=== PATIENT | female | born 1930 | race Caucasian/White ===

== ENCOUNTER 2018-05-20 12:51 | Inpatient (IN) | payer OTHER ==
[2018-05-20 13:06] VITALS: BMI 32.8
--- NOTE | 2018-05-20 14:23 | PDOC ---
History of Present Illness - General History Source: Patient Exam Limitations: No Limitations - History of Present Illness Initial Comments: 05/20/18 15:05 The patient is a 87 year old female, accompanied by family, with a significant PMH of heart failure, hyperlipidemia and hypertension, who presents to the emergency department with 1-2 days of confusion. As per family, the patient appears more confused than baseline and is normally very quick to answer questions. They also report the patient has been complaining of a headache for the past 2 days. The patient denies any suicidal ideations, homicidal ideations or hallucinations. Denies any recent injuries or trauma. The patient denies chest pain, shortness of breath and dizziness. Denies fever, chills, nausea, vomit, diarrhea and constipation. Denies dysuria, frequency, urgency and hematuria. Allergies: NKA PCP: Dr Velazquez <Pablo Yao - Last Filed: 05/20/18 15:04> <Doug Rodriguez - Last Filed: 05/20/18 16:57> - General Chief Complaint: Altered Mental Status Stated Complaint: RAPID HEARTBEAT, HEADACHE (PCP SENT) Time Seen by Provider: 05/20/18 14:23 NIH Stroke Scale - Last Known Well Date/Time & Onset Date Last Known Well: 05/18/18 - Initial Evaluation Level of consciousness: Alert Ask patient the month and their age: Both incorrect Ask patient to open & close eyes; make fist and let go: Obeys both correctly Best gaze (horizontal eye movement): Normal Visual field testing: No visual field loss Facial paresis (Show teeth/raise eyebrows/close eyes tight): Normal symmetrical movement Motor Function: Left Arm: Normal Motor Function: Right Arm: Normal (extends arm 90 (or 45) degrees for 10 seconds without drift Motor Function: Left Leg: Normal (extends leg 30 degrees for 5 seconds without drift) Motor Function: Right Leg: Normal (extends leg 30 degrees for 5 seconds without drift) Limb Ataxia: No ataxia Sensory(Use pinprick test arms,legs,trunk,face/side to side): Normal Best language (Describe picture, name items, read sentences): No Aphasia Dysarthria (read several words): Normal articulation Extinction and Inattention: No abnormality - Total Score NIH Stroke Scale Score: 2 <Doug Rodriguez - Last Filed: 05/20/18 16:57> Past History <Kye Yaoian - Last Filed: 05/20/18 15:04> - Past Medical History Cardiac Disorders: Yes COPD: No CHF: Yes HTN: Yes Hypercholesterolemia: Yes - Surgical History Cardiac Surgery: Yes (cardiac catheterization) - Suicide/Smoking/Psychosocial Hx Smoking History: Former smoker Have you smoked in the past 12 months: No If you are a former smoker, when did you quit?: 30 years ago Information on smoking cessation initiated: No <Doug Rodriguez - Last Filed: 05/20/18 16:57> - Past Medical History Allergies/Adverse Reactions: Allergies Allergy/AdvReac Type Severity Reaction Status Date / Time No Known Allergies Allergy Verified 05/20/18 12:59 Review of Systems - Review of Systems Comments:: 05/20/18 15:05 A complete review of 10 out of 10 review of systems is taken and is negative apart from what is previously mentioned below and in the HPI. <Pablo Yao - Last Filed: 05/20/18 15:04> *Physical Exam - Vital Signs Last Vital Signs Temp Pulse Resp BP Pulse Ox 98.3 F 68 18 142/62 95 05/20/18 13:01 05/20/18 13:01 05/20/18 13:01 05/20/18 13:01 05/20/18 13:01 - Physical Exam Comments: 05/20/18 15:06 Vitals: Triage Vital signs reviewed General Appearance: no acute distress, well nourished well developed, Head: Atraumatic, normocephalic Eyes: Pupils equal reactive round, extraocular movement intact Neck: Supple;No Nuchal rigidity Chest Wall: Nontender Cardiac: Regular rate and rhythm, no murmurs, no rubs, no gallops, Lungs: Clear to auscultation bilateral, good air movement bilaterally, Abdomen: Soft, nondistended, normal bowel sounds, nontender to palpation Rectal: Exam deferred Extremities: Full range of motion to all extremities, no cyanosis, clubbing, or edema Skin: Warm and dry, no rashes or lesions, no petechiae Neuro: (+) AOX1; Cranial Nerves 2-12 grossly intact, Strength intact to all extremities, Sensation intact to all extremities. Normal gait. Psych: normal mood, normal affect <Pablo Yao Last Filed: 05/20/18 15:04> - Vital Signs Last Vital Signs Temp Pulse Resp BP Pulse Ox 98.3 F 68 18 142/62 95 05/20/18 13:01 05/20/18 13:01 05/20/18 13:01 05/20/18 13:01 05/20/18 13:01 <Doug Rodriguez - Last Filed: 05/20/18 16:57> Moderate Sedation - Procedure Monitoring Vital Signs: Procedure Monitoring Vital Signs Temperature 98.3 F 05/20/18 13:01 Pulse Rate 68 05/20/18 13:01 Respiratory Rate 18 05/20/18 13:01 Blood Pressure 142/62 05/20/18 13:01 O2 Sat by Pulse Oximetry (%) 95 05/20/18 13:01 <Pablo Yao - Last Filed: 05/20/18 15:04> - Procedure Monitoring Vital Signs: Procedure Monitoring Vital Signs Temperature 98.3 F 05/20/18 13:01 Pulse Rate 68 05/20/18 13:01 Respiratory Rate 18 05/20/18 13:01 Blood Pressure 142/62 05/20/18 13:01 O2 Sat by Pulse Oximetry (%) 95 05/20/18 13:01 <Doug Rodriguez - Last Filed: 05/20/18 16:57> Heart Score/ECG Review - ECG Impressions Comment:: 05/20/18 16:57 EKG performed at 1631 demonstrates normal sinus rhythm nonspecific biphasic T waves. Inferior laterally with no acute ST elevations Interpreted by me. <Doug Rodriguez - Last Filed: 05/20/18 16:57> ED Treatment Course - LABORATORY CBC & Chemistry Diagram: 05/20/18 15:30 05/20/18 15:30 <Doug Rodriguez - Last Filed: 05/20/18 16:57> Medical Decision Making - Medical Decision Making 05/20/18 16:17 87 years old with past medical history significant for CHF hypertension high cholesterol with 2 day history of altered mental status and confusion Head CT with no acute findings also with headache 2 days We'll admit to medicine for further management neurology has been consult did patient ordered for Reglan and Benadryl given the possibility of acute confusional migraine or although other neurologic etiologies we'll also need to be ruled out <Doug Rodriguez - Last Filed: 05/20/18 16:57> *DC/Admit/Observation/Transfer - Attestations Scribe Attestion: 05/20/18 15:11 Documentation prepared by Pablo Yao, acting as medical records analyst for Doug Rodriguez MD. <Pablo Yao - Last Filed: 05/20/18 15:04> - Discharge Dispostion Decision to Admit order: Yes <Doug Rodriguez - Last Filed: 05/20/18 16:57> Diagnosis at time of Disposition: Altered mental status Qualifiers: Altered mental status type: unspecified Qualified Code(s): R41.82 - Altered mental status, unspecified - Referrals Referrals: Kenn Velazquez MD [Primary Care Provider] -
[2018-05-20 15:53] LABS: BASO % 0.7 % (0-2.0); EOS % 1.4 % (0-4.5); HEMATOCRIT 41.8 % (32.4-45.2); HEMOGLOBIN 13.3 GM/dL (10.7-15.3); LYMPH % 17.1 % (8-40); MCH 29.7 pg (25.7-33.7); MCHC 31.9 g/dl (32.0-36.0); MEAN CELL VOLUME 93.2 fl (80-96); MEAN PLT VOLUME 10.8 fl (7.5-11.1); MONO % 9.5 % (3.8-10.2); NEUT % 71.3 % (42.8-82.8); PLATELET COUNT 213 K/MM3 (134-434); RBC 4.49 M/mm3 (3.60-5.2); RDW 14.8 % (11.6-15.6); WHITE BLOOD COUNT 11.4 K/mm3 (4.0-10.0)
[2018-05-20] MEDS ORDERED: SODIUM CHLORIDE 0.9% 1000 ML INFUS.BAG IV ONE (16:15)
[2018-05-20] MEDS ORDERED: METOCLOPRAMIDE HCL INJECTION 10 MG/2 ML VIAL IVPB ONE (16:15)
[2018-05-20] MEDS ORDERED: METOCLOPRAMIDE HCL INJECTION 10 MG/2 ML VIAL ONE (16:18)
[2018-05-20 16:19] LABS: ALBUMIN 3.8 g/dl (3.4-5.0); ALK PHOS 76 U/L (45-117); ANION GAP 6 MMOL/L (8-16); BILIRUBIN,TOTAL 0.6 mg/dL (0.2-1); BLOOD UREA NITROGEN 14 mg/dL (7-18); CALCIUM 9.1 mg/dL (8.5-10.1); CHLORIDE 105 mmol/L (98-107); CO2 27 mmol/L (21-32); CREATININE 1.4 mg/dL (0.55-1.3); GLUCOSE,RANDOM 91 mg/dL (74-106); N-TERMINAL BNP 413.9 pg/ml (5-450); POTASSIUM 4.1 mmol/L (3.5-5.1); SGOT/AST 15 U/L (15-37); SGPT/ALT 14 U/L (13-61); SODIUM 138 mmol/L (136-145); TOT PROT 8.3 g/dl (6.4-8.2)
[2018-05-20] MEDS ORDERED: ACETAMINOPHEN 325 MG TABLET (FP) PO PRN (17:00)
--- NOTE | 2018-05-20 17:15 | HP ---
Admitting History and Physical - Primary Care Physician PCP: Kenn Velazquez - Admission Chief Complaint: Headache and confusion History of Present Illness: Ms Minor is a pleasant 87 year old female who was sent in from her PCP's office secondary to confusion. She herself says she feels fine and is without new complaint. She denies fevers, chills, lightheadedness, dizziness, passing out, headache, chest pain or pressure, shortness of breath, nausea, vomiting, diarrhea, constipation, difficulty or pain on urination, or swelling. She does endorse chronic dyspnea on exertion that is unchanged and a productive cough that has been present for about a year. However her family says that 2 days ago she began to complain of a headache, and yesterday she became confused. They state she can answer questions appropriately but it takes her longer to answer. Also that she answers some simple questions (like the date) inappropriately which is unusual. The daughter states that the way she answers questions is like she is "living in the past". History Source: Patient, Family Member Limitations to Obtaining History: Clinical Condition - Past Medical History Cardiovascular: Yes: CHF, HTN, Hyperlipdemia - Past Surgical History Past Surgical History: Yes: None - Smoking History Smoking history: Former smoker Have you smoked in the past 12 months: No If you are a former smoker, when did you quit?: 30 years ago - Alcohol/Substance Use Hx Alcohol Use: Yes (occasional) History of Substance Use: reports: None - Social History ADL: Independent History of Recent Travel: No Home Medications - Allergies Allergies/Adverse Reactions: Allergies Allergy/AdvReac Type Severity Reaction Status Date / Time No Known Allergies Allergy Verified 05/20/18 12:59 - Home Medications Home Medications (free text): nifedipine 30mg daily. carvedilol. atorvastatin Family Disease History - Family Disease History Family Disease History: Other: Mother (acute CVA) Review of Systems Findings/Remarks: Full review of systems obtained, as per HPI and otherwise negative Physical Examination Vital Signs: Vital Signs Temperature 36.8 C 05/20/18 13:01 Pulse Rate 68 05/20/18 13:01 Respiratory Rate 18 05/20/18 13:01 Blood Pressure 142/62 05/20/18 13:01 O2 Sat by Pulse Oximetry (%) 95 05/20/18 13:01 Constitutional: Yes: Well Nourished, No Distress, Calm Eyes: Yes: Conjunctiva Clear, EOM Intact, PERRL HENT: Yes: Atraumatic, Normocephalic Cardiovascular: Yes: Regular Rate and Rhythm. No: Gallop, Murmur, Rub Respiratory: Yes: Regular, CTA Bilaterally. No: Rales, Rhonchi, Wheezes Gastrointestinal: Yes: Normal Bowel Sounds, Soft. No: Distention, Tenderness Extremities: Yes: WNL Edema: No Neurological: Yes: Alert, Oriented (to person only, answered place and date wrong) ...Motor Strength: WNL Labs: CBC, BMP 05/20/18 15:30 05/20/18 15:30 Imaging - Results Chest X-ray: Pending Cat Scan: Report Reviewed Problem List - Problems (1) Altered mental status Assessment/Plan: -currently unclear -was having headache, currently resolved, but may be atypical migraine -however need to rule out other sources -neurology consulted -will check MRI head for possible CVA -echo and carotid ultrasound -check urinalysis, urine culture, influenza, chest x-ray, and blood cultures for possible infectious cause -check ammonia and TSH for metabolic cause -speech and PT consult Code(s): R41.82 - ALTERED MENTAL STATUS, UNSPECIFIED Qualifiers: Altered mental status type: unspecified Qualified Code(s): R41.82 - Altered mental status, unspecified (2) HTN (hypertension) Assessment/Plan: -slightly elevated but should not cause AMS -continue nifedipine -will place on low dose coreg as family does not know exact dose -obtain home dose Code(s): I10 - ESSENTIAL (PRIMARY) HYPERTENSION (3) HLD (hyperlipidemia) Assessment/Plan: -check lipid panel in am -continue atorvastatin, will place on 20mg -obtain home dose Code(s): E78.5 - HYPERLIPIDEMIA, UNSPECIFIED (4) CHF (congestive heart failure) Assessment/Plan: -obtain ECHO -currently not on diuretics -no ACEI secondary to causes cough Code(s): I50.9 - HEART FAILURE, UNSPECIFIED (5) Proteinuria Assessment/Plan: -noted Code(s): R80.9 - PROTEINURIA, UNSPECIFIED (6) Frequent UTI Assessment/Plan: -check urinalysis and urine culture Code(s): N39.0 - URINARY TRACT INFECTION, SITE NOT SPECIFIED
--- NOTE | 2018-05-20 17:21 | CON.NEURO ---
Consult Consult Specialty:: Ulysses Referred by:: ER Reason for Consultation:: AMS - History of Present Illness History of Present Illness: 87 years old woman with history of CAD Senile mild cog impairment hypertension Mild obesity Apparently patient was with her family and she lives with her who I interviewed on telemetry patient had a sudden onset of being confused and not knowing dates and time. This is not normal this never happened before no recent travel no head trauma patient was stepwise in the emergency room CAT scan of the head was done blood work was taken. Patient with mildly elevated white count CAT scan of the head was within normal I ordered an MRI. I reviewed images of the MRI which did not show any evidence of stroke. The abnormal signal intensity that the radiologist referred to is noted. when interviewed the patient on the floor the was at her presence at the bedside she was pleasant lady with no complain still doesn't know the date she said its [place] date coming up. No agitation no change in behavior no seizure activity. Registered nurse and telemetry did not detect any cardiac arrhythmia. - History Source History Provided By: Medical Record Limitations to Obtaining History: Clinical Condition - Smoking History Smoking history: Former smoker Have you smoked in the past 12 months: No If you are a former smoker, when did you quit?: 30 years ago Home Medications - Allergies Allergies/Adverse Reactions: Allergies Allergy/AdvReac Type Severity Reaction Status Date / Time No Known Allergies Allergy Verified 05/20/18 12:59 Family Disease History - Family Disease History Family History: Denies (seizure) Review of Systems - Review of Systems Neurological: reports: Incoordination, Numbness Physical Exam-Neuro Vital Signs: Vital Signs Temperature 98.3 F 05/20/18 13:01 Pulse Rate 68 05/20/18 13:01 Respiratory Rate 18 05/20/18 13:01 Blood Pressure 142/62 05/20/18 13:01 O2 Sat by Pulse Oximetry (%) 95 05/20/18 13:01 Constitutional: Yes: Well Nourished Neck: Yes: WNL Cardiovascular: Yes: WNL Labs: CBC, BMP 05/20/18 15:30 05/20/18 15:30 - Neuro Exam Level Of Consciousness: Yes: Oriented to Person, Oriented to Place Eyes: Yes: PERRLA Speech: WNL Dominant Hand: Right Cranial Nerves II-XII Intact: Yes Gag: Present DTR's: 1+ Left Bicep, 1+ Right Bicep, 1+ Left Brachioradialis, 1+ Right Brachioradialis Response to light touch: Normal Response to pain prick: Normal Response to temperature: Normal Response to vibration: Normal Motor Strength: 3/5: Left Arm, Right Arm, Left Leg, Right Leg Gait: Deferred Imaging - Results Cat Scan: Image Reviewed MRI: Image Reviewed Problem List - Problems (1) Altered mental status Assessment/Plan: altered mental status with sudden sharp onset we encounter this not infrequently with patients coming with a sudden onset of altered sensorium associated with immediate and short-term memory dysfunction as a beginning of early stages of more organic brain syndrome in the category of Alzheimer dementia. I really do not think this patient's MRI is abnormal control it looks very good for an 87 years old woman.. I will treat her as sudden onset of dementia I would also rule out sepsis. Plan 1. Agree to presented with the monitor. 2. Blood work for dementia. 3. Sepsis workup. 4. EEG. 5. Trial of Namenda 5 mg twice a day with careful monitoring of side effects of sedation and dizziness. Thank you very much for allowing me to be part of this patient's neurological care will follow the patient during the admission. Code(s): R41.82 - ALTERED MENTAL STATUS, UNSPECIFIED Qualifiers: Altered mental status type: unspecified Qualified Code(s): R41.82 - Altered mental status, unspecified
[2018-05-20] MEDS ORDERED: ATORVASTATIN CA 20 MG TABLET (FP) PO SCH (22:00)
[2018-05-20] MEDS: CARVEDILOL 3.125 MG TABLET (FP) PO SCH (22:34)
[2018-05-21 02:55] LABS: URINE APPEARANCE CLEAR; URINE BILIRUBIN NEGATIVE (<2.0 mg/dL); URINE COLOR LTYELLOW; URINE GLUCOSE (UA) NEGATIVE (NEGATIVE); URINE KETONE NEGATIVE (NEGATIVE); URINE LEUK ESTERASE NEGATIVE (NEGATIVE); URINE NITRITE NEGATIVE (NEGATIVE); URINE PROTEIN NEGATIVE (NEGATIVE); URINE UROBILINOGEN NEGATIVE mg/dL (0.2-1.0)
[2018-05-21 06:49] LABS: BASO % 0.5 % (0-2.0); EOS % 1.5 % (0-4.5); HEMATOCRIT 38.2 % (32.4-45.2); HEMOGLOBIN 12.2 GM/dL (10.7-15.3); LYMPH % 18.4 % (8-40); MCH 29.9 pg (25.7-33.7); MEAN CELL VOLUME 93.2 fl (80-96); MEAN PLT VOLUME 11.4 fl (7.5-11.1); MONO % 10.5 % (3.8-10.2); NEUT % 69.1 % (42.8-82.8); PLATELET COUNT 185 K/MM3 (134-434); RDW 14.9 % (11.6-15.6); WHITE BLOOD COUNT 11.2 K/mm3 (4.0-10.0)
[2018-05-21 07:22] LABS: INR 1.13 (0.83-1.09); PROTHROMBIN TIME (PATIENT) 13.4 SEC (9.7-13.0)
[2018-05-21 08:07] LABS: ALBUMIN 3.2 g/dl (3.4-5.0); ALK PHOS 67 U/L (45-117); ANION GAP 9 MMOL/L (8-16); BLOOD UREA NITROGEN 12 mg/dL (7-18); CALCIUM 8.3 mg/dL (8.5-10.1); CHLORIDE 105 mmol/L (98-107); CHOLESTEROL 217 mg/dL (50-200); CO2 26 mmol/L (21-32); CREATININE 1.3 mg/dL (0.55-1.3); GLUCOSE,RANDOM 84 mg/dL (74-106); HDL CHOLESTEROL 49 mg/dL (40-60); MAGNESIUM 2.1 mg/dL (1.8-2.4); PHOSPHOROUS 3.2 mg/dL (2.5-4.9); POTASSIUM 3.7 mmol/L (3.5-5.1); SGOT/AST 15 U/L (15-37); SGPT/ALT 15 U/L (13-61); SODIUM 140 mmol/L (136-145); TOT PROT 7.3 g/dl (6.4-8.2); TRIGLYCERIDES 122 mg/dL (0-150)
[2018-05-21] MEDS ORDERED: ATORVASTATIN CA 80 MG TABLET (FP) PO SCH (08:56)
--- NOTE | 2018-05-21 09:45 | EKG ---
Test Reason : Blood Pressure : / mmHG Vent. Rate : 084 BPM Atrial Rate : 084 BPM P-R Int : 156 ms QRS Dur : 102 ms QT Int : 414 ms P-R-T Axes : 025 -25 -01 degrees QTc Int : 489 ms NORMAL SINUS RHYTHM POSSIBLE LEFT ATRIAL ENLARGEMENT LEFT VENTRICULAR HYPERTROPHY NONSPECIFIC T WAVE ABNORMALITY PROLONGED QT ABNORMAL ECG NO PREVIOUS ECGS AVAILABLE Confirmed by MAY MCNULTY, CINDY ([id number]) on 05/21/2018 9:45:14 AM Referred By: Confirmed By:CINDY OLVERA MD
--- NOTE | 2018-05-21 09:51 | CONSULT ---
Admitting History and Physical - Primary Care Physician PCP: Jabier Nunez - Admission History of Present Illness: 87 years old with past medical history significant for CHF hypertension high cholesterol with 2 day history of altered mental status and confusion Selected Entries 05/20/18 05/20/18 05/20/18 13:01 19:10 22:30 Temperature 98.3 F 98.3 F 98.5 F 05/21/18 05/21/18 01:55 05:00 Temperature 98.3 F 99.1 F Laboratory Tests 05/20/18 05/21/18 15:30 05:30 WBC 11.4 H 11.2 H Pt's reports his was fully oriented until a couple of days ago. She was driving, cooking, independent in ADL. History Source: Family Member, Medical Record Limitations to Obtaining History: Clinical Condition (Unaware that she is in hospital, right after having echo done at bedside. PT saw her 15 min later and said she was oriented for them) - Past Medical History Cardiovascular: Yes: CHF, HTN, Hyperlipdemia ...: No - Past Surgical History Past Surgical History: Yes: None - Smoking History Smoking history: Former smoker Have you smoked in the past 12 months: No If you are a former smoker, when did you quit?: 30 years ago - Alcohol/Substance Use Hx Alcohol Use: Yes (occasional) History of Substance Use: reports: None - Social History ADL: Independent History of Recent Travel: No History - Admission Reason For Visit: ALTERED MENTAL STATUS - Diagnostics CT Scan: Report Reviewed MRI: Report Reviewed (indicative of chronic hypertensive encephalopathy) - General Mental Status: Awake and Alert, Able to Follow Commands, Forgetful, Intermittently Confused Attention: Intact Ability to Follow Directions: Good Head/Neck Control: WFL - Hearing Hearing: Normal Hearing Aide: No With Patient: No Speech Evaluation - Communication Primary Language: LIBERIAN Communication: Yes: Within Normal Limits Oral Expression Ability: Yes: No Impairment - Speech Production Able to Make Needs Known: Yes: WNL Intelligibility: Yes: WNL - Speech Characteristics Voice Loudness: Normal Voice Pitch: Yes: Normal Voice Phonatory-based Quality: Yes: Normal Speech Pattern: Normal Speech Clarity: < 100% Nasal Resonance: Normal Articulation: Yes: Precise - Language/Auditory Comprehension Follows: Yes: 2 Stage Simple Commands - Language/Verbal Expression Able to Respond to Simple Queries: Yes: WNL Able to Communicate Wants and Needs: Yes: WNL Functional Communication Status: Yes: WNL - Swallow Evaluation/Bedside Assessment Current Nutritional Intake: Regular, Thin Liquids Oral Secretions: Yes: WFL Dentition: Yes: Adequate Facial Symmetry at Rest: Symmetrical Facial Symmetry on Retraction: Symmetrical Against Resistance Opening: Normal Against Resistance Closing: Normal Pucker Lips: Normal Smile: Normal Lingual Movement: Symmetric Lingual Speed of Movement: Normal Lingual Movement Strgth Against Opposition: Normal Lingual Movement Characteristics: Normal Velopharyngeal Movement: Normal Laryngeal Elevation: WFL Laryngeal Movement: Able to Palpate Rate of Intake: WFL Bolus Size: WFL Labial Seal: WFL Chewing: WFL Oral Prep Time: WFL A-P Transit: WFL Pocketing: None Timing of Swallow: WFL Coughing/Throat Clear: No Change in Voice: No Recommendations - Speech Evaluation, Impression/Plan Impression: Speech/language/swallowing intact. Orientation fluctuating? - Dysphagia Impressions/Plan Swallowing Skills: WF Dysphagia Impressions: No Impairment *Silent aspiration: cannot be R/O at bedside - Recommendations Diet Consistency: Regular Medication Administration: Whole with water Liquids: Thin Liquids
[2018-05-21] MEDS ORDERED: NIFEdipine E.R. 30 MG TABLET (FP) PO SCH (10:00)
[2018-05-21] MEDS: CARVEDILOL 3.125 MG TABLET (FP) PO SCH (10:29)
[2018-05-21] MEDS: ENOXAPARIN NA (PORCINE) 40 MG/0.4 ML DISP.SYRIN SQ SCH (10:29)
[2018-05-21] MEDS: ASPIRIN COATED 81 MG TABLET.EC PO SCH (10:29)
--- NOTE | 2018-05-21 10:57 | ECHO ---
Name: DEVAN VILLALBA Exam:Adult Echocardiogram Study Date: 05/21/2018 09:33 AM Age: 87 yrs Reason For Study: cva Height: 63 in Weight: 185 lb BSA: 1.9 m2 MMode/2D Measurements & Calculations IVSd: 1.0 cm Ao root diam: 2.8 cm LVIDd: 4.0 cm ACS: 1.9 cm LVIDs: 3.5 cm LVPWd: 1.6 cm EDV(Teich): 68.7 ml LVOT diam: 2.5 cm ESV(Teich): 50.5 ml Doppler Measurements & Calculations Med Peak E' Earnest: 6.6 cm/sec Lat Peak E' Earnest: 2.6 cm/sec Procedure The study was technically difficult with many images being suboptimal in quality. Left Ventricle There is mild concentric left ventricular hypertrophy. Left ventricular systolic function is moderate ly reduced. The transmitral spectral Doppler flow pattern is suggestive of impaired LV relaxation. There is moderate global hypokinesis of the left ventricle. Right Ventricle The right ventricle is grossly normal size. The right ventricular systolic function is grossly normal . Atria The left atrium is mildly dilated. Mitral Valve The mitral valve is grossly normal. There is no mitral valve stenosis. There is mild mitral regurgita tion. Tricuspid Valve The tricuspid valve is normal in structure and function. There is Trace to mild tricuspid regurgitati on. Aortic Valve The aortic valve is not well visualized. Mild to moderate aortic regurgitation. Pulmonic Valve The pulmonic valve is not well seen, but is grossly normal. There is no pulmonic valvular stenosis. Great Vessels The aortic root is normal size. Pericardium/Pleura There is no pericardial effusion. Interpretation Summary The study was technically difficult with many images being suboptimal in quality. There is moderate global hypokinesis of the left ventricle. Left ventricular systolic function is moderately reduced. There is mild concentric left ventricular hypertrophy. The transmitral spectral Doppler flow pattern is suggestive of impaired LV relaxation. The left atrium is mildly dilated. There is mild mitral regurgitation. There is Trace to mild tricuspid regurgitation. The aortic valve is not well visualized. Mild to moderate aortic regurgitation. There is no pericardial effusion. MD Mainor Coyle 05/21/2018 10:56 AM
[2018-05-21] MEDS ORDERED: CARVEDILOL 6.25 MG TABLET (FP) PO SCH ×2 (11:34→22:00)
--- NOTE | 2018-05-21 12:59 | PN ---
Physical Exam: SUBJECTIVE: Patient seen and examined at bed side this morning. states she has no complaints. Denies chest pain, sob, cough, palpitation, abdominal pain, nausea or vomiting. As per patient's grand daughter (spoke over the phone who states she is confused , not at her baseline). OBJECTIVE: Vital Signs Period Temp Pulse Resp BP Sys/Rendon Pulse Ox Last 24 Hr 98.3 F-99.1 F 68-85 18-20 129-167/56-88 94-95 GENERAL: Elderly female, sitting in a chair comfortably, patient is awake, alert , and confused, in no acute distress. HEAD: Normal with no signs of trauma. EYES: EOM intact, no pallor or icterus. ENT: Ears normal, moist mucous membranes. NECK: Supple. LUNGS: B/L Breath sounds equal, no wheeze or crackles. HEART: Regular rate and rhythm, S1, S2 with systolic murmur. ABDOMEN: Soft, nontender, no organomegaly. EXTREMITIES: 2+ pulses, warm, well-perfused, no edema. NEUROLOGICAL: No facial droop, follows commands, power 5/5 in all extremities, sensations intact, Cranial nerves II through XII grossly intact. Normal speech, normal gait. PSYCH: Normal mood, normal affect. SKIN: Warm, dry, normal turgor, no rashes or lesions noted Laboratory Results - last 24 hr 05/20/18 05/20/18 05/20/18 15:30 15:30 15:30 WBC 11.4 H RBC 4.49 Hgb 13.3 Hct 41.8 MCV 93.2 MCH 29.7 MCHC 31.9 L RDW 14.8 Plt Count 213 MPV 10.8 Absolute Neuts (auto) 8.2 H Neutrophils % 71.3 Lymphocytes % 17.1 Monocytes % 9.5 Eosinophils % 1.4 Basophils % 0.7 Nucleated RBC % 0 ESR PT with INR INR Sodium 138 Potassium 4.1 Chloride 105 Carbon Dioxide 27 Anion Gap 6 L BUN 14 Creatinine 1.4 H Creat Clearance w eGFR 35.74 Random Glucose 91 Hemoglobin A1c % Calcium 9.1 Phosphorus Magnesium Total Bilirubin 0.6 AST 15 ALT 14 Alkaline Phosphatase 76 Ammonia Troponin I 0.04 C-Reactive Protein 0.7 H B-Natriuretic Peptide 413.9 Cancelled Total Protein 8.3 H Albumin 3.8 Triglycerides Cholesterol Total LDL Cholesterol HDL Cholesterol Vitamin B12 244 TSH Free T4 Urine Color Urine Appearance Urine pH Ur Specific [place] Urine Protein Urine Glucose (UA) Urine Ketones Urine Blood Urine Nitrite Urine Bilirubin Urine Urobilinogen Ur Leukocyte Esterase RPR Titer Influenza A (Rapid) Influenza B (Rapid) 05/20/18 05/20/18 05/20/18 19:19 19:19 22:30 WBC RBC Hgb Hct MCV MCH MCHC RDW Plt Count MPV Absolute Neuts (auto) Neutrophils % Lymphocytes % Monocytes % Eosinophils % Basophils % Nucleated RBC % ESR PT with INR INR Sodium Potassium Chloride Carbon Dioxide Anion Gap BUN Creatinine Creat Clearance w eGFR Random Glucose Hemoglobin A1c % Calcium Phosphorus Magnesium Total Bilirubin AST ALT Alkaline Phosphatase Ammonia 29.30 Troponin I C-Reactive Protein B-Natriuretic Peptide Total Protein Albumin Triglycerides Cholesterol Total LDL Cholesterol HDL Cholesterol Vitamin B12 TSH 4.63 H Free T4 0.74 L Urine Color Urine Appearance Urine pH Ur Specific [place] Urine Protein Urine Glucose (UA) Urine Ketones Urine Blood Urine Nitrite Urine Bilirubin Urine Urobilinogen Ur Leukocyte Esterase RPR Titer Influenza A (Rapid) Negative Influenza B (Rapid) Negative 05/21/18 05/21/18 05/21/18 02:00 05:30 05:30 WBC 11.2 H RBC 4.10 Hgb 12.2 Hct 38.2 MCV 93.2 MCH 29.9 MCHC 32.0 RDW 14.9 Plt Count 185 MPV 11.4 H Absolute Neuts (auto) 7.7 Neutrophils % 69.1 Lymphocytes % 18.4 Monocytes % 10.5 H Eosinophils % 1.5 Basophils % 0.5 Nucleated RBC % 0 ESR PT with INR 13.40 H INR 1.13 H Sodium Potassium Chloride Carbon Dioxide Anion Gap BUN Creatinine Creat Clearance w eGFR Random Glucose Hemoglobin A1c % Calcium Phosphorus Magnesium Total Bilirubin AST ALT Alkaline Phosphatase Ammonia Troponin I C-Reactive Protein B-Natriuretic Peptide Total Protein Albumin Triglycerides Cholesterol Total LDL Cholesterol HDL Cholesterol Vitamin B12 TSH Free T4 Urine Color Ltyellow Urine Appearance Clear Urine pH 7.0 Ur Specific [place] 1.008 L Urine Protein Negative Urine Glucose (UA) Negative Urine Ketones Negative Urine Blood Negative Urine Nitrite Negative Urine Bilirubin Negative Urine Urobilinogen Negative Ur Leukocyte Esterase Negative RPR Titer Influenza A (Rapid) Influenza B (Rapid) 05/21/18 05/21/18 05/21/18 05:30 05:30 05:30 WBC RBC Hgb Hct MCV MCH MCHC RDW Plt Count MPV Absolute Neuts (auto) Neutrophils % Lymphocytes % Monocytes % Eosinophils % Basophils % Nucleated RBC % ESR 19 PT with INR INR Sodium 140 Potassium 3.7 Chloride 105 Carbon Dioxide 26 Anion Gap 9 BUN 12 Creatinine 1.3 Creat Clearance w eGFR 38.93 Random Glucose 84 Hemoglobin A1c % Calcium 8.3 L Phosphorus 3.2 Magnesium 2.1 Total Bilirubin 1.0 AST 15 ALT 15 Alkaline Phosphatase 67 Ammonia Troponin I C-Reactive Protein B-Natriuretic Peptide Total Protein 7.3 Albumin 3.2 L Triglycerides 122 Cholesterol 217 H Total LDL Cholesterol 145 H HDL Cholesterol 49 Vitamin B12 TSH 5.61 H Free T4 Urine Color Urine Appearance Urine pH Ur Specific [place] Urine Protein Urine Glucose (UA) Urine Ketones Urine Blood Urine Nitrite Urine Bilirubin Urine Urobilinogen Ur Leukocyte Esterase RPR Titer Nonreactive Influenza A (Rapid) Influenza B (Rapid) 05/21/18 05:30 WBC RBC Hgb Hct MCV MCH MCHC RDW Plt Count MPV Absolute Neuts (auto) Neutrophils % Lymphocytes % Monocytes % Eosinophils % Basophils % Nucleated RBC % ESR PT with INR INR Sodium Potassium Chloride Carbon Dioxide Anion Gap BUN Creatinine Creat Clearance w eGFR Random Glucose Hemoglobin A1c % 5.8 Calcium Phosphorus Magnesium Total Bilirubin AST ALT Alkaline Phosphatase Ammonia Troponin I C-Reactive Protein B-Natriuretic Peptide Total Protein Albumin Triglycerides Cholesterol Total LDL Cholesterol HDL Cholesterol Vitamin B12 TSH Free T4 Urine Color Urine Appearance Urine pH Ur Specific [place] Urine Protein Urine Glucose (UA) Urine Ketones Urine Blood Urine Nitrite Urine Bilirubin Urine Urobilinogen Ur Leukocyte Esterase RPR Titer Influenza A (Rapid) Influenza B (Rapid) Active Medications Generic Name Dose Route Start Last Admin Trade Name Freq PRN Reason Stop Dose Admin Acetaminophen 650 mg 05/20/18 17:00 Tylenol - PO Q4H PRN FEVER Aspirin 81 mg 05/21/18 10:00 05/21/18 10:29 Ecotrin - PO 81 mg DAILY MARY Administration Atorvastatin Calcium 80 mg 05/21/18 08:56 Lipitor - PO HS MARY Carvedilol 6.25 mg 05/21/18 22:00 Coreg - PO BID MARY Enoxaparin Sodium 40 mg 05/21/18 10:00 05/21/18 10:29 Lovenox - SQ 40 mg DAILY MARY Administration Nifedipine 30 mg 05/21/18 10:00 05/21/18 10:29 Procardia Xl - PO 30 mg DAILY MARY Administration ASSESSMENT/PLAN: Patient is an 87 year old female with significant PMHx of heart failure, hyperlipidemia and hypertension presented to the ED with the chief complaint of confusion x 1-2 days. 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 Admit to tele/continuous cardiac monitoring AMS less likely due to sepsis, no SIRS, no source of infection, flu ruled out. Blood cultures/Urine cultures negative. Trial of [place] CT Head: No acute pathology Brain MRI reviewed and discussed with Dr. Arora, patient doesn't have an acute stroke Carotid doppler pending Echo reviewed, no past echo to compare with. Will try to call her PCP's office to get more info. Swallow eval done, no swallowing issues. Pending PT eval. # Newly diagnosed hypothyroidism TSH high, T4 low. Will start her on PO Synthroid 25 mcg Will order Thyroid ultrasound if needed. Needs outpatient f/up with [facility]. # HLD Continue Statin 20mg # HTN Continue Losartin 100 mg PO daily, Nifedipine 60 mg daily # DM ISS, finger sticks, watch for hypoglycemic episodes, hold Metformin # Hypothyroidism # FEN Not on IV fluids. Electrolytes WNL Cholesterol/fat controlled diet # Prophylaxis For DVT: On Lovenox 40 mg sq For GI: Not indicated # Code Status: Full Code # Dispo:Admitted in Tele. Duration of stay likely 1-2 days. Illness, Investigation and plan of care explained to the patient's family. They verbalized understanding. Case discussed with Dr. Nunez. Visit type - Emergency Visit Emergency Visit: Yes ED Registration Date: 05/20/18 Care time: The patient presented to the Emergency Department on the above date and was hospitalized for further evaluation of their emergent condition. - New Patient This patient is new to me today: Yes Date on this admission: 05/21/18 - Critical Care Critical Care patient: No - Discharge Referral Referred to [facility] Med P.C.: No
--- NOTE | 2018-05-21 13:44 | PN ---
Teaching Attending Note Name of Resident: Cinthya Wahl ATTENDING PHYSICIAN STATEMENT I saw and evaluated the patient. I reviewed the resident's note and discussed the case with the resident. I agree with the resident's findings and plan as documented. SUBJECTIVE: Ms Minor says she feels fine today. Denies cp, sob, n/v. AxO x2 today, closer with the date but still did not say 2018 OBJECTIVE: Last Vital Signs Temp Pulse Resp BP Pulse Ox 36.8 C 84 20 136/86 95 05/21/18 14:55 05/21/18 14:55 05/21/18 14:55 05/21/18 14:55 05/21/18 09:00 Gen: nad Pulm: ctab w/o w/r/r CV: rrr w/o m/r/g Abd: +bs, s/nt/nd Ext: no c/c/e CBC, BMP 05/21/18 05:30 05/21/18 05:30 MRI Abnormal restrictive diffusion involving septum pellucidum, column of fornix, genu of corpus callosum - recent nonhemorrhagic ischemic changes in vascular territory of the A1, A2 branches of the anterior cerebral artery. Extensive diffuse multiple discrete and confluent FLAIR hyperintensities scattered throughout the supratentorial white matter consistent with chronic hypertensive encephalopathy. Foci of increased signal intensity observed in the garcia, middle cerebellar peduncles - chronic microangiopathic ischemic changes, gliosis. ASSESSMENT AND PLAN: (1) Altered mental status Assessment/Plan: -MRI read reviewed -awaiting official note from neurology -MRI read above, but per discussion with neurology no acute CVA noted -possible early alzheimers -await culture results to rule out sepsis Code(s): R41.82 - ALTERED MENTAL STATUS, UNSPECIFIED Qualifiers: Altered mental status type: unspecified Qualified Code(s): R41.82 - Altered mental status, unspecified (2) HTN (hypertension) Assessment/Plan: -continue nifedipine -placed on coreg 12.5mg bid which is home dose -may need to adjust for better control Code(s): I10 - ESSENTIAL (PRIMARY) HYPERTENSION (3) HLD (hyperlipidemia) Assessment/Plan: -continue lipitor Code(s): E78.5 - HYPERLIPIDEMIA, UNSPECIFIED (4) CHF (congestive heart failure) Assessment/Plan: -ECHO reviewed -will d/w cardiology if this is a change Code(s): I50.9 - HEART FAILURE, UNSPECIFIED (5) Proteinuria Assessment/Plan: -noted Code(s): R80.9 - PROTEINURIA, UNSPECIFIED (6) Frequent UTI Assessment/Plan: -urinalysis negative Code(s): N39.0 - URINARY TRACT INFECTION, SITE NOT SPECIFIED (7) Hypothyroidism -elevated TSH and low FT4 -will start synthroid 25mcg daily -follow up as an outpatient Problem List - Problems (1) Altered mental status Code(s): R41.82 - ALTERED MENTAL STATUS, UNSPECIFIED Qualifiers: Altered mental status type: unspecified Qualified Code(s): R41.82 - Altered mental status, unspecified (2) HTN (hypertension) Code(s): I10 - ESSENTIAL (PRIMARY) HYPERTENSION (3) HLD (hyperlipidemia) Code(s): E78.5 - HYPERLIPIDEMIA, UNSPECIFIED (4) CHF (congestive heart failure) Code(s): I50.9 - HEART FAILURE, UNSPECIFIED (5) Proteinuria Code(s): R80.9 - PROTEINURIA, UNSPECIFIED (6) Frequent UTI Code(s): N39.0 - URINARY TRACT INFECTION, SITE NOT SPECIFIED
[2018-05-21] MEDS ORDERED: LEVOTHYROXINE NA 25 MCG TABLET (FP) PO ONE (13:45)
[2018-05-21] MEDS: INSULIN SLIDING SCALE (NOVOLOG) 1 VIAL SQ SCH ×2 (16:46→21:34)
[2018-05-21] MEDS ORDERED: MELATONIN 5 MG TABLETS PO ONE (20:58)
[2018-05-21] MEDS: CARVEDILOL 12.5 MG TABLET (FP) PO SCH (21:34)
[2018-05-21] MEDS ORDERED: ATORVASTATIN CA 20 MG TABLET (FP) PO SCH (22:00)
[2018-05-22] MEDS: INSULIN SLIDING SCALE (NOVOLOG) 1 VIAL SQ SCH ×2 (06:19→13:04)
[2018-05-22] MEDS ORDERED: LEVOTHYROXINE NA 25 MCG TABLET (FP) PO SCH (07:00)
[2018-05-22 08:02] LABS: HEMATOCRIT 33.9 % (32.4-45.2); HEMOGLOBIN 11.9 GM/dL (10.7-15.3); MCH 32.3 pg (25.7-33.7); MCHC 35.2 g/dl (32.0-36.0); MEAN CELL VOLUME 91.6 fl (80-96); MEAN PLT VOLUME 11.6 fl (7.5-11.1); PLATELET COUNT 184 K/MM3 (134-434); RDW 14.4 % (11.6-15.6); WHITE BLOOD COUNT 9.8 K/mm3 (4.0-10.0)
[2018-05-22 08:50] LABS: ANION GAP 10 MMOL/L (8-16); BLOOD UREA NITROGEN 15 mg/dL (7-18); CALCIUM 8.2 mg/dL (8.5-10.1); CHLORIDE 104 mmol/L (98-107); CO2 23 mmol/L (21-32); CREATININE 1.3 mg/dL (0.55-1.3); GLUCOSE,RANDOM 99 mg/dL (74-106); PHOSPHOROUS 3.4 mg/dL (2.5-4.9); POTASSIUM 3.8 mmol/L (3.5-5.1); SODIUM 137 mmol/L (136-145)
[2018-05-22] MEDS: ENOXAPARIN NA (PORCINE) 40 MG/0.4 ML DISP.SYRIN SQ SCH (09:55)
[2018-05-22] MEDS: CARVEDILOL 12.5 MG TABLET (FP) PO SCH (09:55)
[2018-05-22] MEDS: ASPIRIN COATED 81 MG TABLET.EC PO SCH (09:55)
[2018-05-22] MEDS ORDERED: NIFEdipine E.R 60 MG TABLET (UD) PO SCH (10:00)
[2018-05-22] MEDS ORDERED: LOSARTAN POTASSIUM 50 MG TABLET (FP) PO SCH (10:00)
[2018-05-22 10:02] VITALS: BP 133/74; PULSE 70; TEMP 99
--- NOTE | 2018-05-22 10:55 | DS ---
Physical Examination Vital Signs: Vital Signs Temperature 37.2 C 05/22/18 10:01 Pulse Rate 70 05/22/18 10:01 Respiratory Rate 20 05/22/18 10:01 Blood Pressure 133/74 05/22/18 10:01 O2 Sat by Pulse Oximetry (%) 95 05/21/18 21:00 Constitutional: Yes: Well Nourished, No Distress, Calm Cardiovascular: Yes: Regular Rate and Rhythm. No: Gallop, Murmur, Rub Respiratory: Yes: Regular, CTA Bilaterally. No: Rales, Rhonchi, Wheezes Gastrointestinal: Yes: Normal Bowel Sounds, Soft. No: Distention, Tenderness Extremities: Yes: WNL Edema: No Labs: CBC, BMP 05/22/18 07:00 05/22/18 07:00 Discharge Summary Reason For Visit: ALTERED MENTAL STATUS Current Active Problems Altered mental status (Acute) CHF (congestive heart failure) (Acute) Frequent UTI (Acute) HLD (hyperlipidemia) (Acute) HTN (hypertension) (Acute) Proteinuria (Acute) Hospital Course: (1) Altered mental status Code(s): R41.82 - ALTERED MENTAL STATUS, UNSPECIFIED Qualifiers: Altered mental status type: unspecified Qualified Code(s): R41.82 - Altered mental status, unspecified (2) HTN (hypertension) Code(s): I10 - ESSENTIAL (PRIMARY) HYPERTENSION (3) HLD (hyperlipidemia) Code(s): E78.5 - HYPERLIPIDEMIA, UNSPECIFIED (4) CHF (congestive heart failure) Code(s): I50.9 - HEART FAILURE, UNSPECIFIED (5) Proteinuria Code(s): R80.9 - PROTEINURIA, UNSPECIFIED (6) Frequent UTI Code(s): N39.0 - URINARY TRACT INFECTION, SITE NOT SPECIFIED (7) Hypothyroidism Ms Minor is a very pleasant 87 year old female who came in with AMS. She was admitted to the hospital with concern for acute CVA. 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 ECHO was performed and reviewed with cardiology, no acute intervention needed in the hospital since she is medically managed. She was started on namenda. She was found to have hypothyroidism so started on synthroid. Can follow up with her PCP for thyroid ultrasound if needed. Even though her urinalysis was negative her urine culture is positive and she did present with elevated WBC on admission. Patient is eager to go home and will discharge her on oral keflex and follow up cultures after this. If needs adjustment will call. Currently she is stable for discharge home. 34 minutes spent in preparation of this discharge Condition: Good - Instructions Diet, Activity, Other Instructions: resume previous diet and activity. Outpatient EEG and carotid ultrasound per Dr Arora's orders Referrals: Kenn Velazquez MD [Primary Care Provider] - Francis Fernandez MD [Staff Physician] - Melony Arora MD [Staff Physician] - Disposition: HOME - Home Medications Comprehensive Discharge Medication List: Ambulatory Orders Atorvastatin Ca [Lipitor] 20 mg PO HS 05/21/18 Carvedilol [Coreg -] 12.5 mg PO BID 05/21/18 Losartan Potassium 100 mg PO DAILY 05/21/18 Nifedipine [Procardia Xl] 60 mg PO DAILY 05/21/18 Aspirin Coated [Ecotrin -] 81 mg PO DAILY tablet.ec 05/22/18 Cephalexin Monohydrate [Keflex -] 500 mg PO BID #14 capsule 05/22/18 Levothyroxine [Synthroid -] 25 mcg PO DAILY@0700 #30 tablet 05/22/18 Memantine HCl [Namenda -] 5 mg PO BID #60 tablet 05/22/18
--- NOTE | 2018-05-22 12:15 | CON.CARD ---
Cardiology Consult (text) - Consultation Consultation Note: cc: confusion hpi: 87 f hx chf, htn, hld, hypothyroid here with confusion. Brought in by family 2/2 confusion. No cp sob palps dizzy loc pnd orthopnea le edema. Eval by neuro and thought to have early signs of dementia, no cva. pmh: per hpi psh: nc social: ex tob fam: nc ros: per hpi; no nvd fever cough gib hematuria dysuria muscle pain meds: Home Medications Medication Instructions Recorded Atorvastatin Ca [Lipitor] 20 mg PO HS 05/21/18 Carvedilol [Coreg -] 12.5 mg PO BID 05/21/18 Losartan Potassium 100 mg PO DAILY 05/21/18 Nifedipine [Procardia Xl] 60 mg PO DAILY 05/21/18 Aspirin Coated [Ecotrin -] 81 mg PO DAILY tablet.ec 05/22/18 Cephalexin Monohydrate [Keflex -] 500 mg PO BID #14 capsule 05/22/18 Levothyroxine [Synthroid -] 25 mcg PO DAILY@0700 #30 tablet 05/22/18 Memantine HCl [Namenda -] 5 mg PO BID #60 tablet 05/22/18 pe: Vital Signs Period Temp Pulse Resp BP Sys/Rendon Pulse Ox Last 24 Hr 97.8 F-100.4 F 70-94 18-20 133-148/71-86 95 nad no jvd rrr s1s2 no mrg cta bl nl eff awake alert appropriate no le e/c/c abd nt nd pos bs no jaundice diaphoresis pos dp pt no carotid bruits Laboratory Last Values WBC 9.8 K/mm3 (4.0-10.0) 05/22/18 07:00 RBC 3.70 M/mm3 (3.60-5.2) 05/22/18 07:00 Hgb 11.9 GM/dL (10.7-15.3) 05/22/18 07:00 Hct 33.9 % (32.4-45.2) 05/22/18 07:00 MCV 91.6 fl (80-96) 05/22/18 07:00 MCH 32.3 pg (25.7-33.7) 05/22/18 07:00 MCHC 35.2 g/dl (32.0-36.0) 05/22/18 07:00 RDW 14.4 % (11.6-15.6) 05/22/18 07:00 Plt Count 184 K/MM3 (134-434) 05/22/18 07:00 MPV 11.6 fl (7.5-11.1) H 05/22/18 07:00 Absolute Neuts (auto) 7.7 K/mm3 (1.5-8.0) 05/21/18 05:30 Neutrophils % 69.1 % (42.8-82.8) 05/21/18 05:30 Lymphocytes % 18.4 % (8-40) 05/21/18 05:30 Monocytes % 10.5 % (3.8-10.2) H 05/21/18 05:30 Eosinophils % 1.5 % (0-4.5) 05/21/18 05:30 Basophils % 0.5 % (0-2.0) 05/21/18 05:30 Nucleated RBC % 0 % (0-0) 05/21/18 05:30 ESR 19 mm/hr (0-30) 05/21/18 05:30 PT with INR 13.40 SEC (9.7-13.0) H 05/21/18 05:30 INR 1.13 (0.83-1.09) H 05/21/18 05:30 Sodium 137 mmol/L (136-145) 05/22/18 07:00 Potassium 3.8 mmol/L (3.5-5.1) 05/22/18 07:00 Chloride 104 mmol/L (98-107) 05/22/18 07:00 Carbon Dioxide 23 mmol/L (21-32) 05/22/18 07:00 Anion Gap 10 MMOL/L (8-16) 05/22/18 07:00 BUN 15 mg/dL (7-18) 05/22/18 07:00 Creatinine 1.3 mg/dL (0.55-1.3) 05/22/18 07:00 Creat Clearance w eGFR 38.93 (>60) 05/22/18 07:00 POC Glucometer 102 UNITS (80-120) 05/22/18 06:18 Random Glucose 99 mg/dL (74-106) 05/22/18 07:00 Hemoglobin A1c % 5.8 % (4.2-6.3) 05/21/18 05:30 Calcium 8.2 mg/dL (8.5-10.1) L 05/22/18 07:00 Phosphorus 3.4 mg/dL (2.5-4.9) 05/22/18 07:00 Magnesium 2.0 mg/dL (1.8-2.4) 05/22/18 07:00 Total Bilirubin 1.0 mg/dL (0.2-1) 05/21/18 05:30 AST 15 U/L (15-37) 05/21/18 05:30 ALT 15 U/L (13-61) 05/21/18 05:30 Alkaline Phosphatase 67 U/L (45-117) 05/21/18 05:30 Ammonia 29.30 umol/L (11-32) 05/20/18 19:19 Troponin I 0.04 ng/ml (0.00-0.05) 05/20/18 15:30 C-Reactive Protein 0.7 MG/DL (0.00-0.3) H 05/20/18 15:30 B-Natriuretic Peptide 413.9 pg/ml (5-450) 05/20/18 15:30 Total Protein 7.3 g/dl (6.4-8.2) 05/21/18 05:30 Albumin 3.2 g/dl (3.4-5.0) L 05/21/18 05:30 Triglycerides 122 mg/dL (0-150) 05/21/18 05:30 Cholesterol 217 mg/dL (50-200) H 05/21/18 05:30 Total LDL Cholesterol 145 mg/dL (5-100) H 05/21/18 05:30 HDL Cholesterol 49 mg/dL (40-60) 05/21/18 05:30 Vitamin B12 244 pg/ml (193-986) 05/20/18 15:30 TSH 5.61 uIU/ml (0.358-3.74) H 05/21/18 05:30 Free T4 0.74 ng/dl (0.76-1.46) L 05/20/18 19:19 Free T3 2.0 pg/ml (2.0-4.4) 05/20/18 19:19 Total T3 68.00 ng/dl (71-180) L 05/20/18 19:19 Urine Color Ltyellow 05/21/18 02:00 Urine Appearance Clear 05/21/18 02:00 Urine pH 7.0 (5.0-8.0) 05/21/18 02:00 Ur Specific [place] 1.008 (1.010-1.035) L 05/21/18 02:00 Urine Protein Negative (NEGATIVE) 05/21/18 02:00 Urine Glucose (UA) Negative (NEGATIVE) 05/21/18 02:00 Urine Ketones Negative (NEGATIVE) 05/21/18 02:00 Urine Blood Negative (NEGATIVE) 05/21/18 02:00 Urine Nitrite Negative (NEGATIVE) 05/21/18 02:00 Urine Bilirubin Negative (<2.0 mg/dL) 05/21/18 02:00 Urine Urobilinogen Negative mg/dL (0.2-1.0) 05/21/18 02:00 Ur Leukocyte Esterase Negative (NEGATIVE) 05/21/18 02:00 RPR Titer Nonreactive (NONREACTIVE) 05/21/18 05:30 Influenza A (Rapid) Negative 05/20/18 22:30 Influenza B (Rapid) Negative 05/20/18 22:30 cxr: clear lungs tele: sr ecg: sr, nl intervals, lvh, no ischemic changes echo 04/2018: lvh, mod dec lvef, global hk, nl rv, lae, mild mr, mild-mod ar a/p: 87 f hx chf, htn, hld, hypothyroid here with confusion. confusion: -Evaluated by neuro and thought to have early signs of dementia, no cva. chronic syst chf: -stable, no signs vol overload or acs -cont coreg, cozaar htn: -cont home meds hld: -cont statin cardiac tellez stable for dc
== END 2018-05-22 15:00 | disposition home or self-care (01) | DRG 57 ==
LOC: JER 12:51 → JERBED 16:28 → J4W 21:46
PROVIDERS: ADMIT Internal Medicine; ATTEND Internal Medicine
DX: G30.9 Alzheimer's disease, unspecified (principal); F02.81 Dementia in other diseases classified elsewhere, unspecified severity, with behavioral disturbance; I50.22 Chronic systolic (congestive) heart failure; N39.0 Urinary tract infection, site not specified; I11.0 Hypertensive heart disease with heart failure; E78.5 Hyperlipidemia, unspecified; R41.82 Altered mental status, unspecified; E03.9 Hypothyroidism, unspecified; E66.9 Obesity, unspecified; Z68.32 Body mass index [BMI] 32.0-32.9, adult
CPT/HCPCS: 36415; 70450-TC; 70551-TC; 71045-TC-FY; 80048; 80053; 80061; 81003; 82140; 82607; 82962; 83036; 83090; 83721; 83735; 83880; 84100; 84439; 84443; 84480; 84481; 84484; 85025; 85027; 85610; 85651; 86038; 86140; 86593; 87040; 87086; 87186; 87804; 93005; 93010; 93306-TC; 97116-GP; 97161-GP; 99283-25; J7030

== ENCOUNTER 2020-11-27 11:06 | Inpatient (IN) | payer OTHER ==
[2020-11-27 12:51] LABS: BASO % 1.1 % (0-2.0); EOS % 1.8 % (0-4.5); HEMATOCRIT 37.2 % (32.4-45.2); HEMOGLOBIN 12.2 GM/dL (10.7-15.3); LYMPH % 15.1 % (8-40); MCH 30.1 pg (25.7-33.7); MCHC 32.8 g/dl (32.0-36.0); MEAN PLT VOLUME 11.1 fl (7.5-11.1); MONO % 12.5 % (3.8-10.2); NEUT % 69.5 % (42.8-82.8); PLATELET COUNT 224 10^3/uL (134-434); RBC 4.04 M/mm3 (3.60-5.2); RDW 15.5 % (11.6-15.6); WHITE BLOOD COUNT 9.5 K/mm3 (4.0-10.0)
[2020-11-27 12:59] LABS: INR 1.06 (0.83-1.09); PROTHROMBIN TIME (PATIENT) 12.8 SEC (9.7-13.0)
[2020-11-27 13:02] LABS: ACTIVATED PTT 27.2 SECONDS (25.2-36.5)
[2020-11-27 13:18] LABS: ALBUMIN 3.3 g/dl (3.4-5.0); BLOOD UREA NITROGEN 23.7 mg/dL (7-18)
[2020-11-27 13:21] LABS: CREATININE 1.3 mg/dL (0.55-1.3)
[2020-11-27 13:23] LABS: BILIRUBIN,TOTAL 0.6 mg/dL (0.2-1); TOT PROT 7.7 g/dl (6.4-8.2)
[2020-11-27] MEDS ORDERED: ASPIRIN 81 MG CHEWABLE TABLETS PO ONE (14:49)
[2020-11-27] MEDS ORDERED: ASPIRIN 81 MG CHEWABLE TABLETS ONE (15:07)
[2020-11-27] MEDS ORDERED: CARVEDILOL 12.5 MG TABLET (FP) ONE (17:00)
[2020-11-27] MEDS: CARVEDILOL 12.5 MG TABLET (FP) PO SCH ×2 (17:00→22:52)
[2020-11-27] MEDS: NIFEdipine E.R. 30 MG TABLET PO SCH (17:00)
[2020-11-27] MEDS ORDERED: NIFEdipine E.R. 30 MG TABLET ONE (17:01)
[2020-11-27 18:52] LABS: MAGNESIUM 2.5 mg/dL (1.8-2.4)
[2020-11-27 21:40] LABS: MAGNESIUM 2.6 mg/dL (1.8-2.4)
[2020-11-28 03:04] VITALS: BMI 29.6
[2020-11-28 07:33] LABS: BASO % 0.5 % (0-2.0); EOS % 3.3 % (0-4.5); HEMATOCRIT 34.7 % (32.4-45.2); HEMOGLOBIN 11.5 GM/dL (10.7-15.3); MCH 30.4 pg (25.7-33.7); MCHC 33.2 g/dl (32.0-36.0); MEAN CELL VOLUME 91.5 fl (80-96); MEAN PLT VOLUME 11.5 fl (7.5-11.1); MONO % 11.1 % (3.8-10.2); NEUT % 71.1 % (42.8-82.8); PLATELET COUNT 215 10^3/uL (134-434); RBC 3.79 M/mm3 (3.60-5.2); RDW 15.6 % (11.6-15.6); WHITE BLOOD COUNT 9.6 K/mm3 (4.0-10.0)
[2020-11-28 07:46] LABS: BLOOD UREA NITROGEN 16.6 mg/dL (7-18)
[2020-11-28 07:48] LABS: CALCIUM 8.4 mg/dL (8.5-10.1)
[2020-11-28 07:49] LABS: CREATININE 1.1 mg/dL (0.55-1.3); MAGNESIUM 2.2 mg/dL (1.8-2.4)
[2020-11-28] MEDS: NIFEdipine E.R. 30 MG TABLET PO SCH (09:43)
[2020-11-28] MEDS: CARVEDILOL 12.5 MG TABLET (FP) PO SCH (09:43)
[2020-11-28] MEDS ORDERED: ENOXAPARIN NA (PORCINE) 40 MG/0.4 ML DISP.SYRIN SQ SCH (10:00)
[2020-11-28] MEDS ORDERED: FUROSEMIDE 40 MG/4 ML INJECTABLE VIAL IVPUSH SCH (13:15)
[2020-11-28 16:10] VITALS: BP 138/66; PULSE 66; TEMP 98
== END 2020-11-28 18:42 | disposition home or self-care (01) | DRG 292 ==
LOC: JER 11:06 → JERBED 15:41 → J4W 22:20
PROVIDERS: ATTEND Internal Medicine
DX: I11.0 Hypertensive heart disease with heart failure (principal); I24.8 Other forms of acute ischemic heart disease; E78.5 Hyperlipidemia, unspecified; I50.33 Acute on chronic diastolic (congestive) heart failure; F03.90 Unspecified dementia, unspecified severity, without behavioral disturbance, psychotic disturbance, mood disturbance, and anxiety; E03.9 Hypothyroidism, unspecified
CPT/HCPCS: 36415; 71045-TC-FY; 80048; 80053; 83036; 83735; 83880; 84484; 85025; 85610; 85730; 93005; 93010; 93306-TC; 99285-25; C9803; U0003; U0005

== ENCOUNTER 2022-02-26 17:48 | Inpatient (IN) | payer OTHER ==
[2022-02-26 20:01] LABS: VENOUS BASE EXCESS 1.9 mmol/L (-2-2); VENOUS O2 SATURATION 53.6 % (70-80); VENOUS PCO2 44.5 mmHg (38-52); VENOUS PH 7.4 (7.310-7.410)
[2022-02-26 20:03] LABS: BASO % 0.5 % (0-2.0); EOS % 0.3 % (0-4.5); HEMOGLOBIN 7.3 GM/dL (10.7-15.3); LYMPH % 3.3 % (8-40); MCH 29.2 pg (25.7-33.7); MCHC 31.7 g/dl (32.0-36.0); MEAN CELL VOLUME 92.1 fl (80-96); MEAN PLT VOLUME 9.7 fl (7.5-11.1); MONO % 13.9 % (3.8-10.2); PLATELET COUNT 397 10^3/uL (134-434); RDW 15.9 % (11.6-15.6); WHITE BLOOD COUNT 17.1 K/mm3 (4.0-10.0)
[2022-02-26] MEDS ORDERED: VANCOMYCIN 1 GM in D5W (PRE-DOCKED) 1,000 MG/250 ML IVPB ONE (20:08)
[2022-02-26] MEDS ORDERED: PIPERACILLIN/TAZOB 4.5 GM 4.5 GM in DEXTROSE 5%-WATER 100 ML IVPB ONE (20:08)
[2022-02-26 20:11] LABS: INR 1.34 (0.83-1.09); PROTHROMBIN TIME (PATIENT) 15.4 SEC (9.7-13.0)
[2022-02-26 20:13] LABS: ACTIVATED PTT 27.4 SECONDS (25.2-36.5)
[2022-02-26 20:23] LABS: CHLORIDE 110 mmol/L (98-107); SODIUM 143 mmol/L (136-145)
[2022-02-26 20:25] LABS: CALCIUM 8.9 mg/dL (8.5-10.1)
[2022-02-26 20:26] LABS: ALBUMIN 2.2 g/dl (3.4-5.0); ANION GAP 7 MMOL/L (8-16); BLOOD UREA NITROGEN 15.4 mg/dL (7-18); CO2 26 mmol/L (21-32); GLUCOSE,RANDOM 108 mg/dL (74-106); MAGNESIUM 2.5 mg/dL (1.8-2.4)
[2022-02-26 20:29] LABS: CREATININE 1.6 mg/dL (0.55-1.3); SGOT/AST 43 U/L (15-37); SGPT/ALT 77 U/L (13-61)
[2022-02-26 20:30] LABS: TOT PROT 7.3 g/dl (6.4-8.2)
[2022-02-26 20:31] LABS: BILIRUBIN,TOTAL 0.7 mg/dL (0.2-1)
[2022-02-26 20:32] LABS: ALK PHOS 135 U/L (45-117)
[2022-02-26 20:34] LABS: N-TERMINAL BNP 25047.5 pg/ml (5-450)
[2022-02-26] MEDS ORDERED: FUROSEMIDE 40 MG/4 ML INJECTABLE VIAL IVPUSH ONE (20:46)
[2022-02-26] MEDS ORDERED: FUROSEMIDE 40 MG/4 ML INJECTABLE VIAL ONE (21:40)
[2022-02-26 21:56] LABS: EPI CELLS >36 /uL (0-25.1); HYALINE CASTS 12 /uL (0-3.1); PH,URINE 6.5 (5.0-8.0); URINE APPEARANCE CLEAR; URINE BACTERIA 7 /uL (0-1359); URINE BILIRUBIN NEGATIVE (NEGATIVE); URINE COLOR DK YELLOW; URINE GLUCOSE (UA) NEGATIVE (NEGATIVE); URINE KETONE NEGATIVE (NEGATIVE); URINE LEUK ESTERASE TRACE (NEGATIVE); URINE NITRITE NEGATIVE (NEGATIVE); URINE PROTEIN 2+ (NEGATIVE); URINE RBC 12 /uL (0-23.9); URINE UROBILINOGEN 4.0 E.U/dl mg/dL (0.2-1.0); URINE WBC 30 /uL (0-25.8)
[2022-02-26 22:21] LABS: RETICULOCYTES 1.47 % (0.5-1.5)
[2022-02-26 22:26] LABS: IRON SERUM 20 ug/dL (50-175)
[2022-02-26 22:27] LABS: TOTAL IRON BINDING CAPACITY 173 ug/dL (250-450)
[2022-02-27] MEDS ORDERED: PIPERACILLIN/TAZOB 2.25 GM 2.25 GM in DEXTROSE 5%-WATER - 50 ML IVPB SCH (03:00)
[2022-02-27] MEDS ORDERED: PIPERACILLIN/TAZOB 4.5 GM 4.5 GM in DEXTROSE 5%-WATER 100 ML IVPB SCH (03:00)
[2022-02-27] MEDS ORDERED: VANCOMYCIN 1 GM in D5W (PRE-DOCKED) 1,000 MG/250 ML IVPB SCH (03:10)
[2022-02-27] MEDS ORDERED: FUROSEMIDE 40 MG/4 ML INJECTABLE VIAL IVPUSH ONE (04:48)
[2022-02-27] MEDS: PIPERACILLIN/TAZOB 2.25 GM 2.25 GM in DEXTROSE 5%-WATER - 50 ML IVPB SCH ×3 (05:42→17:47)
[2022-02-27] MEDS: HEPARIN NA (PORCINE) 5,000 UNITS/ML 1ML VIAL SQ SCH ×3 (05:45→21:55)
[2022-02-27] MEDS ORDERED: DONEPEZIL HCL 5 MG TABLET (FP) PO SCH (10:00)
[2022-02-27] MEDS ORDERED: VANCOMYCIN/WATER 1,250 MG/250 ML BAG (RESTRICTED TO ID ONLY) IVPB SCH (10:00)
[2022-02-27] MEDS ORDERED: LOSARTAN POTASSIUM 50 MG TABLET PO SCH (10:00)
[2022-02-27] MEDS: FUROSEMIDE 40 MG/4 ML INJECTABLE VIAL IVPUSH SCH (11:20)
[2022-02-27] MEDS: CARVEDILOL 12.5 MG TABLET (FP) PO SCH ×2 (11:21→21:55)
[2022-02-27] MEDS: ACETAMINOPHEN 325 MG TABLET (FP) PO PRN (17:46)
[2022-02-27] MEDS ORDERED: VANCOMYCIN/WATER FOR INJ (PEG) 1,000 MG/200 ML BAG IVPB SCH (20:00)
[2022-02-27] MEDS: DONEPEZIL HCL 5 MG TABLET (FP) PO SCH (21:55)
[2022-02-27] MEDS: ATORVASTATIN CA 20 MG TABLET (FP) PO SCH (21:55)
[2022-02-28] MEDS: PIPERACILLIN/TAZOB 2.25 GM 2.25 GM in DEXTROSE 5%-WATER - 50 ML IVPB SCH ×3 (03:17→17:33)
[2022-02-28] MEDS: HEPARIN NA (PORCINE) 5,000 UNITS/ML 1ML VIAL SQ SCH ×3 (07:39→21:20)
[2022-02-28 08:41] LABS: HEMATOCRIT 23.2 % (32.4-45.2); HEMOGLOBIN 7.4 GM/dL (10.7-15.3); MCH 28.9 pg (25.7-33.7); MCHC 31.8 g/dl (32.0-36.0); MEAN CELL VOLUME 90.8 fl (80-96); MEAN PLT VOLUME 10.2 fl (7.5-11.1); PLATELET COUNT 360 10^3/uL (134-434); RBC 2.55 M/mm3 (3.60-5.2); RDW 15.7 % (11.6-15.6); WHITE BLOOD COUNT 23.2 K/mm3 (4.0-10.0)
[2022-02-28 09:15] LABS: CALCIUM 8.9 mg/dL (8.5-10.1)
[2022-02-28 09:16] LABS: BLOOD UREA NITROGEN 24.7 mg/dL (7-18); MAGNESIUM 2.4 mg/dL (1.8-2.4)
[2022-02-28 09:18] LABS: BILIRUBIN,TOTAL 1.2 mg/dL (0.2-1)
[2022-02-28 09:22] LABS: PHOSPHOROUS 5.1 mg/dL (2.5-4.9)
[2022-02-28 09:23] LABS: CREATININE 2.5 mg/dL (0.55-1.3)
[2022-02-28 09:47] LABS: ANISOCYTOSIS 0; MACROCYTOSIS 0
[2022-02-28] MEDS: ACETAMINOPHEN 325 MG TABLET (FP) PO PRN (10:13)
[2022-02-28] MEDS: CARVEDILOL 12.5 MG TABLET (FP) PO SCH ×2 (10:14→21:20)
[2022-02-28] MEDS: FUROSEMIDE 40 MG/4 ML INJECTABLE VIAL IVPUSH SCH (11:11)
[2022-02-28] MEDS ORDERED: SODIUM CHLORIDE 1,000 ML IV SCH (15:30)
[2022-02-28] MEDS: DONEPEZIL HCL 5 MG TABLET (FP) PO SCH (21:20)
[2022-02-28] MEDS: ATORVASTATIN CA 20 MG TABLET (FP) PO SCH (21:20)
[2022-03-01] MEDS: PIPERACILLIN/TAZOB 2.25 GM 2.25 GM in DEXTROSE 5%-WATER - 50 ML IVPB SCH ×3 (01:20→17:03)
[2022-03-01] MEDS: HEPARIN NA (PORCINE) 5,000 UNITS/ML 1ML VIAL SQ SCH ×3 (05:54→22:47)
[2022-03-01] MEDS: LEVOTHYROXINE NA 50 MCG TABLET (FP) PO SCH (06:03)
[2022-03-01 08:05] LABS: BASO % 0.3 % (0-2.0); EOS % 0.4 % (0-4.5); HEMATOCRIT 25.2 % (32.4-45.2); HEMOGLOBIN 8.2 GM/dL (10.7-15.3); LYMPH % 3.7 % (8-40); MCH 29.4 pg (25.7-33.7); MCHC 32.6 g/dl (32.0-36.0); MEAN CELL VOLUME 90.3 fl (80-96); MEAN PLT VOLUME 10.6 fl (7.5-11.1); MONO % 10.9 % (3.8-10.2); NEUT % 84.7 % (42.8-82.8); PLATELET COUNT 318 10^3/uL (134-434); RBC 2.79 M/mm3 (3.60-5.2); RDW 15.2 % (11.6-15.6); WHITE BLOOD COUNT 18.5 K/mm3 (4.0-10.0)
[2022-03-01 08:10] LABS: BLOOD UREA NITROGEN 32.8 mg/dL (7-18); MAGNESIUM 2.2 mg/dL (1.8-2.4)
[2022-03-01 08:13] LABS: BILIRUBIN,TOTAL 0.9 mg/dL (0.2-1); TOT PROT 5.8 g/dl (6.4-8.2)
[2022-03-01 08:18] LABS: ALBUMIN 1.6 g/dl (3.4-5.0)
[2022-03-01] MEDS: CARVEDILOL 12.5 MG TABLET (FP) PO SCH ×2 (10:15→22:47)
[2022-03-01] MEDS ORDERED: SODIUM CHLORIDE 1,000 ML IV SCH (14:30)
[2022-03-01] MEDS: ATORVASTATIN CA 20 MG TABLET (FP) PO SCH (22:47)
[2022-03-01] MEDS: DONEPEZIL HCL 5 MG TABLET (FP) PO SCH (22:47)
[2022-03-02] MEDS: PIPERACILLIN/TAZOB 2.25 GM 2.25 GM in DEXTROSE 5%-WATER - 50 ML IVPB SCH ×3 (03:15→17:23)
[2022-03-02] MEDS: HEPARIN NA (PORCINE) 5,000 UNITS/ML 1ML VIAL SQ SCH ×4 (05:48→21:13)
[2022-03-02] MEDS: LEVOTHYROXINE NA 50 MCG TABLET (FP) PO SCH (06:15)
[2022-03-02] MEDS: CARVEDILOL 12.5 MG TABLET (FP) PO SCH ×3 (09:33→21:13)
[2022-03-02 12:40] LABS: EPI CELLS >36 /uL (0-25.1); HYALINE CASTS 2 /uL (0-3.1); URINE APPEARANCE CLOUDY; URINE BACTERIA 41 /uL (0-1359); URINE BILIRUBIN NEGATIVE (NEGATIVE); URINE COLOR YELLOW; URINE GLUCOSE (UA) NEGATIVE (NEGATIVE); URINE KETONE NEGATIVE (NEGATIVE); URINE LEUK ESTERASE 1+ (NEGATIVE); URINE NITRITE NEGATIVE (NEGATIVE); URINE PROTEIN 1+ (NEGATIVE); URINE RBC 129 /uL (0-23.9); URINE WBC 68 /uL (0-25.8)
[2022-03-02 13:19] LABS: BASO % 0.4 % (0-2.0); EOS % 0.5 % (0-4.5); HEMOGLOBIN 8.4 GM/dL (10.7-15.3); LYMPH % 4.5 % (8-40); MCH 29.8 pg (25.7-33.7); MCHC 32.4 g/dl (32.0-36.0); MEAN CELL VOLUME 91.8 fl (80-96); MEAN PLT VOLUME 9.9 fl (7.5-11.1); MONO % 11.1 % (3.8-10.2); NEUT % 83.5 % (42.8-82.8); PLATELET COUNT 306 10^3/uL (134-434); RBC 2.83 M/mm3 (3.60-5.2); RDW 15.5 % (11.6-15.6); WHITE BLOOD COUNT 14.2 K/mm3 (4.0-10.0)
[2022-03-02 13:39] LABS: CALCIUM 8.2 mg/dL (8.5-10.1)
[2022-03-02 13:41] LABS: ALBUMIN 1.8 g/dl (3.4-5.0); BLOOD UREA NITROGEN 37.4 mg/dL (7-18); MAGNESIUM 2.5 mg/dL (1.8-2.4)
[2022-03-02 13:43] LABS: CREATININE 3.1 mg/dL (0.55-1.3)
[2022-03-02 13:45] LABS: BILIRUBIN,TOTAL 0.8 mg/dL (0.2-1); TOT PROT 6.4 g/dl (6.4-8.2)
[2022-03-02] MEDS: AMINO ACIDS/PROTEIN HYDROLYS 30 ML LIQUID.PKT PO SCH (17:23)
[2022-03-02] MEDS ORDERED: FLU VACC QS2022-23(6MOS UP)/PF 60 MCG/0.5 ML SYRINGE IM ONE (19:00)
[2022-03-02] MEDS: DONEPEZIL HCL 5 MG TABLET (FP) PO SCH ×2 (20:56→21:13)
[2022-03-02] MEDS: ATORVASTATIN CA 20 MG TABLET (FP) PO SCH ×2 (20:56→21:13)
[2022-03-02] MEDS: ACETAMINOPHEN 325 MG TABLET (FP) PO PRN (20:57)
[2022-03-03] MEDS: PIPERACILLIN/TAZOB 2.25 GM 2.25 GM in DEXTROSE 5%-WATER - 50 ML IVPB SCH ×3 (02:58→17:21)
[2022-03-03] MEDS: LEVOTHYROXINE NA 50 MCG TABLET (FP) PO SCH (06:27)
[2022-03-03] MEDS: HEPARIN NA (PORCINE) 5,000 UNITS/ML 1ML VIAL SQ SCH ×3 (06:27→21:10)
[2022-03-03 07:50] LABS: BASO % 0.5 % (0-2.0); EOS % 0.8 % (0-4.5); HEMATOCRIT 27.5 % (32.4-45.2); HEMOGLOBIN 8.9 GM/dL (10.7-15.3); LYMPH % 4.9 % (8-40); MCH 29.5 pg (25.7-33.7); MCHC 32.3 g/dl (32.0-36.0); MEAN CELL VOLUME 91.4 fl (80-96); MEAN PLT VOLUME 10.3 fl (7.5-11.1); MONO % 11.1 % (3.8-10.2); NEUT % 82.7 % (42.8-82.8); PLATELET COUNT 300 10^3/uL (134-434); RDW 15.4 % (11.6-15.6); WHITE BLOOD COUNT 13.8 K/mm3 (4.0-10.0)
[2022-03-03 08:15] LABS: CALCIUM 8.2 mg/dL (8.5-10.1)
[2022-03-03 08:16] LABS: ALBUMIN 1.8 g/dl (3.4-5.0); BLOOD UREA NITROGEN 41.3 mg/dL (7-18); MAGNESIUM 2.4 mg/dL (1.8-2.4)
[2022-03-03 08:19] LABS: CREATININE 3.1 mg/dL (0.55-1.3); PHOSPHOROUS 4.9 mg/dL (2.5-4.9)
[2022-03-03 08:20] LABS: TOT PROT 6.6 g/dl (6.4-8.2)
[2022-03-03 08:23] LABS: BILIRUBIN,TOTAL 0.8 mg/dL (0.2-1)
[2022-03-03] MEDS: CARVEDILOL 12.5 MG TABLET (FP) PO SCH ×2 (09:38→21:10)
[2022-03-03] MEDS: AMINO ACIDS/PROTEIN HYDROLYS 30 ML LIQUID.PKT PO SCH ×2 (09:38→17:21)
[2022-03-03] MEDS ORDERED: POTASSIUM CHLORIDE TABS 20 MEQ TABLET.ER (FP) PO ONE (10:26)
[2022-03-03] MEDS: SODIUM CHLORIDE 0.45% 1,000 ML IV SCH (13:47)
[2022-03-03] MEDS ORDERED: PIPERACILLIN/TAZOBACTAM 2.25 GM VIAL IVPB ONE (16:51)
[2022-03-03] MEDS ORDERED: PNEUMOC 20-VAL CONJ-DIP CRM/PF 0.5 ML SYRINGE IM ONE (19:00)
[2022-03-03] MEDS: ACETAMINOPHEN 325 MG TABLET (FP) PO PRN (20:07)
[2022-03-03] MEDS: ATORVASTATIN CA 20 MG TABLET (FP) PO SCH (21:10)
[2022-03-03] MEDS: DONEPEZIL HCL 5 MG TABLET (FP) PO SCH (21:10)
[2022-03-04] MEDS: PIPERACILLIN/TAZOB 2.25 GM 2.25 GM in DEXTROSE 5%-WATER - 50 ML IVPB SCH ×3 (01:05→17:54)
[2022-03-04] MEDS: SODIUM CHLORIDE 0.45% 1,000 ML IV SCH (05:30)
[2022-03-04] MEDS: LEVOTHYROXINE NA 50 MCG TABLET (FP) PO SCH (06:03)
[2022-03-04] MEDS: HEPARIN NA (PORCINE) 5,000 UNITS/ML 1ML VIAL SQ SCH ×3 (06:03→21:50)
[2022-03-04] MEDS: AMINO ACIDS/PROTEIN HYDROLYS 30 ML LIQUID.PKT PO SCH ×2 (08:09→18:20)
[2022-03-04 08:40] LABS: BASO % 0.9 % (0-2.0); EOS % 0.7 % (0-4.5); HEMATOCRIT 27.6 % (32.4-45.2); HEMOGLOBIN 8.8 GM/dL (10.7-15.3); LYMPH % 4.7 % (8-40); MCH 29.2 pg (25.7-33.7); MCHC 31.7 g/dl (32.0-36.0); MEAN PLT VOLUME 10.1 fl (7.5-11.1); NEUT % 82.7 % (42.8-82.8); PLATELET COUNT 311 10^3/uL (134-434); RDW 15.4 % (11.6-15.6); WHITE BLOOD COUNT 14.1 K/mm3 (4.0-10.0)
[2022-03-04 09:00] LABS: CALCIUM 8.7 mg/dL (8.5-10.1)
[2022-03-04 09:01] LABS: ALBUMIN 1.8 g/dl (3.4-5.0); BLOOD UREA NITROGEN 46.4 mg/dL (7-18); MAGNESIUM 2.6 mg/dL (1.8-2.4)
[2022-03-04 09:04] LABS: CREATININE 3.2 mg/dL (0.55-1.3); PHOSPHOROUS 4.7 mg/dL (2.5-4.9)
[2022-03-04 09:05] LABS: BILIRUBIN,TOTAL 0.7 mg/dL (0.2-1); TOT PROT 6.6 g/dl (6.4-8.2)
[2022-03-04] MEDS: CARVEDILOL 12.5 MG TABLET (FP) PO SCH ×2 (10:10→21:49)
[2022-03-04] MEDS: DEXTROSE 5%-WATER - 1,000 ML with POTASSIUM CHLORIDE 10 MEQ IV SCH (17:54)
[2022-03-04] MEDS: DONEPEZIL HCL 5 MG TABLET (FP) PO SCH (21:49)
[2022-03-04] MEDS: ATORVASTATIN CA 20 MG TABLET (FP) PO SCH (21:49)
[2022-03-05] MEDS: PIPERACILLIN/TAZOB 2.25 GM 2.25 GM in DEXTROSE 5%-WATER - 50 ML IVPB SCH ×2 (06:18→10:24)
[2022-03-05] MEDS: HEPARIN NA (PORCINE) 5,000 UNITS/ML 1ML VIAL SQ SCH ×4 (06:31→22:34)
[2022-03-05] MEDS: LEVOTHYROXINE NA 50 MCG TABLET (FP) PO SCH (06:31)
[2022-03-05] MEDS: AMINO ACIDS/PROTEIN HYDROLYS 30 ML LIQUID.PKT PO SCH ×3 (08:20→16:47)
[2022-03-05 08:55] LABS: BASO % 0.5 % (0-2.0); EOS % 0.7 % (0-4.5); HEMATOCRIT 26.2 % (32.4-45.2); HEMOGLOBIN 8.6 GM/dL (10.7-15.3); LYMPH % 3.9 % (8-40); MCH 30.2 pg (25.7-33.7); MCHC 32.7 g/dl (32.0-36.0); MEAN CELL VOLUME 92.4 fl (80-96); MEAN PLT VOLUME 9.8 fl (7.5-11.1); MONO % 11.8 % (3.8-10.2); NEUT % 83.1 % (42.8-82.8); PLATELET COUNT 274 10^3/uL (134-434); RBC 2.83 M/mm3 (3.60-5.2); WHITE BLOOD COUNT 15.1 K/mm3 (4.0-10.0)
[2022-03-05 09:30] LABS: ALBUMIN 1.7 g/dl (3.4-5.0); BLOOD UREA NITROGEN 45.2 mg/dL (7-18); CALCIUM 8.6 mg/dL (8.5-10.1); MAGNESIUM 2.7 mg/dL (1.8-2.4)
[2022-03-05 09:34] LABS: BILIRUBIN,TOTAL 0.9 mg/dL (0.2-1); CREATININE 3.2 mg/dL (0.55-1.3); PHOSPHOROUS 4.5 mg/dL (2.5-4.9)
[2022-03-05 09:35] LABS: TOT PROT 6.6 g/dl (6.4-8.2)
[2022-03-05] MEDS: CARVEDILOL 12.5 MG TABLET (FP) PO SCH ×3 (10:23→22:35)
[2022-03-05] MEDS: DEXTROSE 5%-WATER - 1,000 ML with POTASSIUM CHLORIDE 10 MEQ IV SCH (10:25)
[2022-03-05] MEDS: AMOX TR/POT CLAV 500MG/125MG TABLETS (FP) PO SCH ×3 (16:44→17:37)
[2022-03-05] MEDS: DONEPEZIL HCL 5 MG TABLET (FP) PO SCH ×2 (22:32→22:35)
[2022-03-05] MEDS: ATORVASTATIN CA 20 MG TABLET (FP) PO SCH (22:32)
[2022-03-05 23:38] VITALS: BMI 29.8
[2022-03-06] MEDS: LEVOTHYROXINE NA 50 MCG TABLET (FP) PO SCH (06:10)
[2022-03-06] MEDS: HEPARIN NA (PORCINE) 5,000 UNITS/ML 1ML VIAL SQ SCH ×3 (06:10→21:22)
[2022-03-06] MEDS: AMOX TR/POT CLAV 500MG/125MG TABLETS (FP) PO SCH ×2 (07:36→16:43)
[2022-03-06] MEDS: AMINO ACIDS/PROTEIN HYDROLYS 30 ML LIQUID.PKT PO SCH ×2 (07:42→16:43)
[2022-03-06] MEDS: VITAMIN B COMP W-C 1 EA TABLET (NEPHRO-VITE) PO SCH (10:12)
[2022-03-06] MEDS: CARVEDILOL 12.5 MG TABLET (FP) PO SCH ×2 (10:12→21:22)
[2022-03-06] MEDS ORDERED: POLYETHYLENE GLYCOL (HEALTHYLAX) 3350 17 GM PACKET PO ONE (15:15)
[2022-03-06] MEDS: ATORVASTATIN CA 20 MG TABLET (FP) PO SCH (21:22)
[2022-03-06] MEDS: DONEPEZIL HCL 5 MG TABLET (FP) PO SCH (21:22)
[2022-03-07] MEDS: HEPARIN NA (PORCINE) 5,000 UNITS/ML 1ML VIAL SQ SCH ×3 (06:22→21:15)
[2022-03-07] MEDS: LEVOTHYROXINE NA 50 MCG TABLET (FP) PO SCH ×2 (06:22→07:54)
[2022-03-07] MEDS: AMOX TR/POT CLAV 500MG/125MG TABLETS (FP) PO SCH ×2 (07:49→17:31)
[2022-03-07] MEDS: AMINO ACIDS/PROTEIN HYDROLYS 30 ML LIQUID.PKT PO SCH ×2 (07:49→17:56)
[2022-03-07] MEDS: CARVEDILOL 12.5 MG TABLET (FP) PO SCH ×2 (10:31→21:15)
[2022-03-07] MEDS: VITAMIN B COMP W-C 1 EA TABLET (NEPHRO-VITE) PO SCH (10:31)
[2022-03-07 12:22] LABS: BASO % 0.1 % (0-2.0); EOS % 0.5 % (0-4.5); HEMATOCRIT 27.8 % (32.4-45.2); HEMOGLOBIN 8.8 GM/dL (10.7-15.3); LYMPH % 5.8 % (8-40); MCH 29.2 pg (25.7-33.7); MCHC 31.6 g/dl (32.0-36.0); MEAN CELL VOLUME 92.6 fl (80-96); MEAN PLT VOLUME 10.1 fl (7.5-11.1); MONO % 13.8 % (3.8-10.2); NEUT % 79.8 % (42.8-82.8); PLATELET COUNT 316 10^3/uL (134-434)
[2022-03-07 12:48] LABS: ALBUMIN 1.7 g/dl (3.4-5.0); BLOOD UREA NITROGEN 51.3 mg/dL (7-18); CALCIUM 8.6 mg/dL (8.5-10.1); MAGNESIUM 2.6 mg/dL (1.8-2.4)
[2022-03-07 12:50] LABS: CREATININE 2.7 mg/dL (0.55-1.3); PHOSPHOROUS 3.4 mg/dL (2.5-4.9)
[2022-03-07 12:52] LABS: BILIRUBIN,TOTAL 0.6 mg/dL (0.2-1); TOT PROT 6.7 g/dl (6.4-8.2)
[2022-03-07] MEDS: DONEPEZIL HCL 5 MG TABLET (FP) PO SCH (21:15)
[2022-03-07] MEDS: ATORVASTATIN CA 20 MG TABLET (FP) PO SCH (21:15)
[2022-03-08] MEDS: LEVOTHYROXINE NA 50 MCG TABLET (FP) PO SCH (06:21)
[2022-03-08] MEDS: HEPARIN NA (PORCINE) 5,000 UNITS/ML 1ML VIAL SQ SCH ×3 (06:21→21:52)
[2022-03-08] MEDS: CARVEDILOL 12.5 MG TABLET (FP) PO SCH ×2 (08:59→21:52)
[2022-03-08] MEDS: VITAMIN B COMP W-C 1 EA TABLET (NEPHRO-VITE) PO SCH (08:59)
[2022-03-08] MEDS: AMOX TR/POT CLAV 500MG/125MG TABLETS (FP) PO SCH ×2 (08:59→16:45)
[2022-03-08] MEDS: AMINO ACIDS/PROTEIN HYDROLYS 30 ML LIQUID.PKT PO SCH ×3 (08:59→17:40)
[2022-03-08] MEDS: ATORVASTATIN CA 20 MG TABLET (FP) PO SCH (21:52)
[2022-03-08] MEDS: DONEPEZIL HCL 5 MG TABLET (FP) PO SCH (21:52)
[2022-03-09] MEDS: HEPARIN NA (PORCINE) 5,000 UNITS/ML 1ML VIAL SQ SCH ×3 (07:02→21:40)
[2022-03-09] MEDS: LEVOTHYROXINE NA 50 MCG TABLET (FP) PO SCH (07:02)
[2022-03-09] MEDS: AMOX TR/POT CLAV 500MG/125MG TABLETS (FP) PO SCH ×2 (08:12→17:03)
[2022-03-09] MEDS: AMINO ACIDS/PROTEIN HYDROLYS 30 ML LIQUID.PKT PO SCH ×2 (08:12→17:03)
[2022-03-09] MEDS: CARVEDILOL 12.5 MG TABLET (FP) PO SCH ×2 (09:19→21:40)
[2022-03-09] MEDS: VITAMIN B COMP W-C 1 EA TABLET (NEPHRO-VITE) PO SCH (09:19)
[2022-03-09 16:09] LABS: BASO % 0.3 % (0-2.0); HEMATOCRIT 26.2 % (32.4-45.2); HEMOGLOBIN 8.5 GM/dL (10.7-15.3); LYMPH % 6.2 % (8-40); MCH 29.7 pg (25.7-33.7); MCHC 32.3 g/dl (32.0-36.0); MEAN PLT VOLUME 9.8 fl (7.5-11.1); MONO % 10.3 % (3.8-10.2); NEUT % 82.2 % (42.8-82.8); PLATELET COUNT 293 10^3/uL (134-434); RBC 2.85 M/mm3 (3.60-5.2); WHITE BLOOD COUNT 13.5 K/mm3 (4.0-10.0)
[2022-03-09 16:30] LABS: CALCIUM 8.3 mg/dL (8.5-10.1)
[2022-03-09 16:31] LABS: ALBUMIN 1.7 g/dl (3.4-5.0); BLOOD UREA NITROGEN 48.2 mg/dL (7-18)
[2022-03-09 16:34] LABS: CREATININE 2.2 mg/dL (0.55-1.3)
[2022-03-09 16:36] LABS: BILIRUBIN,TOTAL 0.6 mg/dL (0.2-1); TOT PROT 6.9 g/dl (6.4-8.2)
[2022-03-09] MEDS: DONEPEZIL HCL 5 MG TABLET (FP) PO SCH (21:40)
[2022-03-10] MEDS: LEVOTHYROXINE NA 50 MCG TABLET (FP) PO SCH (06:04)
[2022-03-10] MEDS: HEPARIN NA (PORCINE) 5,000 UNITS/ML 1ML VIAL SQ SCH ×2 (06:04→14:18)
[2022-03-10 09:15] VITALS: RESP 18
[2022-03-10] MEDS: AMINO ACIDS/PROTEIN HYDROLYS 30 ML LIQUID.PKT PO SCH ×2 (09:17→17:41)
[2022-03-10 13:31] LABS: BASO % 0.3 % (0-2.0); HEMATOCRIT 24.1 % (32.4-45.2); HEMOGLOBIN 7.8 GM/dL (10.7-15.3); MCH 29.6 pg (25.7-33.7); MCHC 32.4 g/dl (32.0-36.0); MEAN CELL VOLUME 91.3 fl (80-96); MEAN PLT VOLUME 9.7 fl (7.5-11.1); MONO % 11.3 % (3.8-10.2); NEUT % 81.4 % (42.8-82.8); PLATELET COUNT 310 10^3/uL (134-434); RBC 2.64 M/mm3 (3.60-5.2); RDW 16.1 % (11.6-15.6)
[2022-03-10 13:57] LABS: BLOOD UREA NITROGEN 46.7 mg/dL (7-18); CALCIUM 8.7 mg/dL (8.5-10.1); MAGNESIUM 2.7 mg/dL (1.8-2.4)
[2022-03-10 13:58] LABS: ALBUMIN 1.6 g/dl (3.4-5.0)
[2022-03-10 14:00] LABS: CREATININE 2.1 mg/dL (0.55-1.3)
[2022-03-10 14:02] LABS: BILIRUBIN,TOTAL 0.6 mg/dL (0.2-1); PHOSPHOROUS 2.9 mg/dL (2.5-4.9); TOT PROT 6.3 g/dl (6.4-8.2)
[2022-03-10] MEDS ORDERED: FUROSEMIDE 20 MG TABLET (FP) PO ONE (14:16)
[2022-03-10] MEDS: VITAMIN B COMP W-C 1 EA TABLET (NEPHRO-VITE) PO SCH (14:20)
[2022-03-10] MEDS: CARVEDILOL 12.5 MG TABLET (FP) PO SCH (14:21)
[2022-03-10 18:26] VITALS: BP 131/61; PULSE 69; TEMP 98.1
[2022-03-11] MEDS ORDERED: FUROSEMIDE 20 MG TABLET (FP) PO SCH (10:00)
== END 2022-03-10 19:15 | DRG 291 ==
LOC: JER 17:48 → JERBED 21:26 → J4W 02-27 00:56
PROVIDERS: ADMIT Internal Medicine; ATTEND Nurse Practitioner Family
PROC: 30233N1 Transfusion of Nonautologous Red Blood Cells into Peripheral Vein, Percutaneous Approach (ICD-10-PCS; principal; 2022-02-28)
DX: I13.0 Hypertensive heart and chronic kidney disease with heart failure and stage 1 through stage 4 chronic kidney disease, or unspecified chronic kidney disease (principal); I50.23 Acute on chronic systolic (congestive) heart failure; J18.9 Pneumonia, unspecified organism; J96.01 Acute respiratory failure with hypoxia; I24.8 Other forms of acute ischemic heart disease; N17.9 Acute kidney failure, unspecified; I47.1 Supraventricular tachycardia; I31.39 Other pericardial effusion (noninflammatory); D72.829 Elevated white blood cell count, unspecified; D63.8 Anemia in other chronic diseases classified elsewhere; I25.10 Atherosclerotic heart disease of native coronary artery without angina pectoris; E78.5 Hyperlipidemia, unspecified; N18.9 Chronic kidney disease, unspecified; F03.90 Unspecified dementia, unspecified severity, without behavioral disturbance, psychotic disturbance, mood disturbance, and anxiety
CPT/HCPCS: 0241U-QW; 36415; 36430; 71045-TC-FY; 71250-TC; 76700-TC; 80048; 80053; 80061; 81003; 82272; 82550; 82570; 82607; 82728; 82746; 82803; 83540; 83550; 83605; 83735; 83880; 84100; 84156; 84300; 84439; 84443; 84466; 84480; 84484; 84540; 85025; 85045; 85610; 85730; 86038; 86704; 86803; 86850; 86900; 86901; 86922; 87040; 87086; 87340; 87517; 87899; 90677; 93005; 93010; 93306-TC; 94761; 97116-GP; 97162-GP; 99291; 99292; C9803-CS; G0008; J1644; P9058; Q2036; U0003; U0005

== ENCOUNTER 2022-04-03 14:05 | Inpatient (IN) | payer OTHER ==
[2022-04-03 15:32] LABS: BASO % 0.6 % (0-2.0); EOS % 1.5 % (0-4.5); HEMATOCRIT 19.6 % (32.4-45.2); LYMPH % 9.5 % (8-40); MCH 28.8 pg (25.7-33.7); MCHC 32.5 g/dl (32.0-36.0); MEAN CELL VOLUME 88.5 fl (80-96); MEAN PLT VOLUME 9.2 fl (7.5-11.1); MONO % 12.8 % (3.8-10.2); NEUT % 75.6 % (42.8-82.8); PLATELET COUNT 322 10^3/uL (134-434); RBC 2.21 M/mm3 (3.60-5.2); RDW 17.6 % (11.6-15.6)
[2022-04-03 15:38] LABS: INR 1.41 (0.83-1.09); PROTHROMBIN TIME (PATIENT) 16.3 SEC (9.7-13.0)
[2022-04-03 15:38] LABS: HEMOGLOBIN 6.4 GM/dL (10.7-15.3)
[2022-04-03 15:41] LABS: ACTIVATED PTT 30.1 SECONDS (25.2-36.5)
[2022-04-03 15:55] LABS: ALBUMIN 1.7 g/dl (3.4-5.0); CALCIUM 8.7 mg/dL (8.5-10.1)
[2022-04-03 15:58] LABS: CREATININE 1.7 mg/dL (0.55-1.3)
[2022-04-03 16:01] LABS: BILIRUBIN,TOTAL 0.7 mg/dL (0.2-1); TOT PROT 6.9 g/dl (6.4-8.2)
[2022-04-03] MEDS ORDERED: VANCOMYCIN 1,000 MG in DEXTROSE 5%-WATER - 250 ML IVPB ONE (16:39)
[2022-04-03] MEDS ORDERED: PIPERACILLIN/TAZOB 4.5 GM 4.5 GM in DEXTROSE 5%-WATER - 100 ML IVPB ONE (16:39)
[2022-04-03] MEDS ORDERED: CEFTRIAXONE 1,000 MG in DEXTROSE 5%-WATER - 50 ML IVPB ONE (17:00)
[2022-04-03] MEDS ORDERED: AZITHROMYCIN IVPB 500 MG in DEXTROSE 5%-WATER - 250 ML IVPB ONE (17:00)
[2022-04-03] MEDS ORDERED: FUROSEMIDE 40 MG/4 ML INJECTABLE VIAL IVPUSH ONE (17:33)
[2022-04-03] MEDS ORDERED: PIPERACILLIN/TAZOB 4.5 GM 4.5 GM/100 ML BAG IVPB ONE (17:37)
[2022-04-03] MEDS ORDERED: VANCOMYCIN/WATER FOR INJ (PEG) 1,000 MG/200 ML BAG IVPB ONE (17:37)
[2022-04-03 20:12] LABS: RETICULOCYTES 1.72 % (0.5-1.5)
[2022-04-04] MEDS: FUROSEMIDE 40 MG/4 ML INJECTABLE VIAL IVPUSH SCH ×2 (06:33→14:14)
[2022-04-04] MEDS: ISOSORBIDE MONONITRATE 30 MG TAB.SR.24H (FP) PO SCH (10:01)
[2022-04-04] MEDS: PANTOPRAZOLE 40 MG TABLET PO SCH (10:01)
[2022-04-04 10:23] LABS: BASO % 0.9 % (0-2.0); EOS % 2.1 % (0-4.5); HEMATOCRIT 24.7 % (32.4-45.2); HEMOGLOBIN 8.4 GM/dL (10.7-15.3); LYMPH % 9.2 % (8-40); MCH 30.2 pg (25.7-33.7); MEAN CELL VOLUME 88.8 fl (80-96); MEAN PLT VOLUME 9.4 fl (7.5-11.1); MONO % 11.6 % (3.8-10.2); NEUT % 76.2 % (42.8-82.8); PLATELET COUNT 276 10^3/uL (134-434); RBC 2.78 M/mm3 (3.60-5.2); WHITE BLOOD COUNT 11.1 K/mm3 (4.0-10.0)
[2022-04-04 10:43] LABS: ALBUMIN 1.7 g/dl (3.4-5.0); CALCIUM 8.4 mg/dL (8.5-10.1)
[2022-04-04 10:45] LABS: BLOOD UREA NITROGEN 25.2 mg/dL (7-18); MAGNESIUM 2.1 mg/dL (1.8-2.4)
[2022-04-04 10:46] LABS: CREATININE 1.7 mg/dL (0.55-1.3)
[2022-04-04 10:48] LABS: BILIRUBIN,TOTAL 1.2 mg/dL (0.2-1); PHOSPHOROUS 2.5 mg/dL (2.5-4.9); TOT PROT 6.9 g/dl (6.4-8.2)
[2022-04-04] MEDS: CARVEDILOL 12.5 MG TABLET (FP) PO SCH ×2 (14:14→22:59)
[2022-04-05] MEDS: FUROSEMIDE 40 MG/4 ML INJECTABLE VIAL IVPUSH SCH ×2 (05:23→14:29)
[2022-04-05] MEDS: PANTOPRAZOLE 40 MG TABLET PO SCH (09:53)
[2022-04-05] MEDS: ISOSORBIDE MONONITRATE 30 MG TAB.SR.24H (FP) PO SCH (09:53)
[2022-04-05] MEDS: CARVEDILOL 12.5 MG TABLET (FP) PO SCH ×2 (09:53→21:40)
[2022-04-05 17:00] LABS: BASO % 0.5 % (0-2.0); EOS % 1.2 % (0-4.5); HEMATOCRIT 23.4 % (32.4-45.2); HEMOGLOBIN 7.8 GM/dL (10.7-15.3); LYMPH % 8.4 % (8-40); MCH 29.4 pg (25.7-33.7); MCHC 33.2 g/dl (32.0-36.0); MEAN CELL VOLUME 88.5 fl (80-96); MEAN PLT VOLUME 8.9 fl (7.5-11.1); MONO % 14.4 % (3.8-10.2); NEUT % 75.5 % (42.8-82.8); PLATELET COUNT 265 10^3/uL (134-434); RBC 2.64 M/mm3 (3.60-5.2); RDW 16.1 % (11.6-15.6); WHITE BLOOD COUNT 11.7 K/mm3 (4.0-10.0)
[2022-04-05 17:17] LABS: ALBUMIN 1.6 g/dl (3.4-5.0); BLOOD UREA NITROGEN 23.9 mg/dL (7-18); CALCIUM 8.4 mg/dL (8.5-10.1)
[2022-04-05 17:20] LABS: CREATININE 1.7 mg/dL (0.55-1.3)
[2022-04-05 17:22] LABS: BILIRUBIN,TOTAL 0.8 mg/dL (0.2-1); TOT PROT 6.6 g/dl (6.4-8.2)
[2022-04-06] MEDS: FUROSEMIDE 40 MG/4 ML INJECTABLE VIAL IVPUSH SCH ×2 (05:50→14:42)
[2022-04-06 09:45] LABS: BASO % 0.3 % (0-2.0); EOS % 1.3 % (0-4.5); HEMOGLOBIN 7.9 GM/dL (10.7-15.3); LYMPH % 8.7 % (8-40); MCH 30.7 pg (25.7-33.7); MCHC 34.5 g/dl (32.0-36.0); MEAN PLT VOLUME 8.5 fl (7.5-11.1); MONO % 14.2 % (3.8-10.2); NEUT % 75.5 % (42.8-82.8); PLATELET COUNT 267 10^3/uL (134-434); RBC 2.58 M/mm3 (3.60-5.2); RDW 16.3 % (11.6-15.6); WHITE BLOOD COUNT 11.4 K/mm3 (4.0-10.0)
[2022-04-06] MEDS: ISOSORBIDE MONONITRATE 30 MG TAB.SR.24H (FP) PO SCH (09:56)
[2022-04-06] MEDS: CARVEDILOL 12.5 MG TABLET (FP) PO SCH ×2 (09:56→21:03)
[2022-04-06] MEDS: PANTOPRAZOLE 40 MG TABLET PO SCH (09:56)
[2022-04-06] MEDS: ATORVASTATIN CA 20 MG TABLET (FP) PO SCH (21:04)
[2022-04-07] MEDS: FUROSEMIDE 40 MG/4 ML INJECTABLE VIAL IVPUSH SCH ×2 (05:18→13:28)
[2022-04-07] MEDS: CARVEDILOL 12.5 MG TABLET (FP) PO SCH ×2 (09:31→22:17)
[2022-04-07] MEDS: ISOSORBIDE MONONITRATE 30 MG TAB.SR.24H (FP) PO SCH (09:31)
[2022-04-07] MEDS: PANTOPRAZOLE 40 MG TABLET PO SCH (09:31)
[2022-04-07 10:21] LABS: BASO % 0.3 % (0-2.0); EOS % 0.9 % (0-4.5); HEMATOCRIT 24.1 % (32.4-45.2); HEMOGLOBIN 8.1 GM/dL (10.7-15.3); LYMPH % 8.1 % (8-40); MCH 29.8 pg (25.7-33.7); MCHC 33.4 g/dl (32.0-36.0); MEAN CELL VOLUME 89.3 fl (80-96); MEAN PLT VOLUME 8.5 fl (7.5-11.1); MONO % 13.2 % (3.8-10.2); NEUT % 77.5 % (42.8-82.8); PLATELET COUNT 257 10^3/uL (134-434); RDW 16.9 % (11.6-15.6); WHITE BLOOD COUNT 11.3 K/mm3 (4.0-10.0)
[2022-04-07 10:47] LABS: CALCIUM 8.4 mg/dL (8.5-10.1)
[2022-04-07 10:48] LABS: ALBUMIN 1.7 g/dl (3.4-5.0)
[2022-04-07 10:51] LABS: CREATININE 1.8 mg/dL (0.55-1.3)
[2022-04-07 10:53] LABS: BILIRUBIN,TOTAL 0.8 mg/dL (0.2-1); TOT PROT 6.7 g/dl (6.4-8.2)
[2022-04-07] MEDS: ATORVASTATIN CA 20 MG TABLET (FP) PO SCH (22:17)
[2022-04-08] MEDS: FUROSEMIDE 40 MG/4 ML INJECTABLE VIAL IVPUSH SCH ×2 (05:39→06:04)
[2022-04-08] MEDS: PANTOPRAZOLE 40 MG TABLET PO SCH (09:45)
[2022-04-08] MEDS: ISOSORBIDE MONONITRATE 30 MG TAB.SR.24H (FP) PO SCH (09:45)
[2022-04-08] MEDS: CARVEDILOL 12.5 MG TABLET (FP) PO SCH ×2 (09:45→21:15)
[2022-04-08 16:23] LABS: BASO % 0.3 % (0-2.0); HEMATOCRIT 26.8 % (32.4-45.2); HEMOGLOBIN 8.8 GM/dL (10.7-15.3); LYMPH % 8.7 % (8-40); MCH 29.6 pg (25.7-33.7); MCHC 32.9 g/dl (32.0-36.0); MEAN CELL VOLUME 89.9 fl (80-96); MEAN PLT VOLUME 9.5 fl (7.5-11.1); PLATELET COUNT 282 10^3/uL (134-434); RBC 2.98 M/mm3 (3.60-5.2); RDW 17.2 % (11.6-15.6)
[2022-04-08 16:51] LABS: ALBUMIN 1.6 g/dl (3.4-5.0); CALCIUM 8.3 mg/dL (8.5-10.1)
[2022-04-08 16:52] LABS: BLOOD UREA NITROGEN 26.1 mg/dL (7-18)
[2022-04-08 16:54] LABS: BILIRUBIN,TOTAL 0.8 mg/dL (0.2-1)
[2022-04-08 16:55] LABS: CREATININE 1.9 mg/dL (0.55-1.3)
[2022-04-08 16:56] LABS: TOT PROT 6.9 g/dl (6.4-8.2)
[2022-04-08] MEDS: ATORVASTATIN CA 20 MG TABLET (FP) PO SCH (21:15)
[2022-04-08] MEDS: POLYETHYLENE GLYCOL (HEALTHYLAX) 3350 17 GM PACKET PO SCH (21:17)
[2022-04-09] MEDS: PANTOPRAZOLE 40 MG TABLET PO SCH (09:44)
[2022-04-09] MEDS: POLYETHYLENE GLYCOL (HEALTHYLAX) 3350 17 GM PACKET PO SCH ×2 (09:44→21:03)
[2022-04-09] MEDS: CARVEDILOL 12.5 MG TABLET (FP) PO SCH ×2 (09:44→21:03)
[2022-04-09] MEDS: ISOSORBIDE MONONITRATE 30 MG TAB.SR.24H (FP) PO SCH (09:44)
[2022-04-09] MEDS: FUROSEMIDE 40 MG TABLET (FP) PO SCH (09:44)
[2022-04-09 11:44] LABS: BASO % 0.3 % (0-2.0); EOS % 1.3 % (0-4.5); HEMATOCRIT 25.1 % (32.4-45.2); HEMOGLOBIN 8.4 GM/dL (10.7-15.3); LYMPH % 8.7 % (8-40); MCH 30.2 pg (25.7-33.7); MCHC 33.3 g/dl (32.0-36.0); MEAN CELL VOLUME 90.6 fl (80-96); MEAN PLT VOLUME 9.1 fl (7.5-11.1); MONO % 14.4 % (3.8-10.2); NEUT % 75.3 % (42.8-82.8); PLATELET COUNT 251 10^3/uL (134-434); RBC 2.77 M/mm3 (3.60-5.2); RDW 17.3 % (11.6-15.6); WHITE BLOOD COUNT 10.9 K/mm3 (4.0-10.0)
[2022-04-09 11:53] LABS: INR 1.18 (0.83-1.09); PROTHROMBIN TIME (PATIENT) 13.6 SEC (9.7-13.0)
[2022-04-09 12:16] LABS: ALBUMIN 1.8 g/dl (3.4-5.0); BLOOD UREA NITROGEN 26.9 mg/dL (7-18); CALCIUM 8.8 mg/dL (8.5-10.1); MAGNESIUM 2.2 mg/dL (1.8-2.4)
[2022-04-09 12:19] LABS: CREATININE 1.7 mg/dL (0.55-1.3)
[2022-04-09 12:21] LABS: BILIRUBIN,TOTAL 0.8 mg/dL (0.2-1); TOT PROT 7.2 g/dl (6.4-8.2)
[2022-04-09] MEDS: ATORVASTATIN CA 20 MG TABLET (FP) PO SCH (21:03)
[2022-04-10] MEDS: PANTOPRAZOLE 40 MG TABLET PO SCH (09:26)
[2022-04-10] MEDS: CARVEDILOL 12.5 MG TABLET (FP) PO SCH ×2 (09:26→21:55)
[2022-04-10] MEDS: POLYETHYLENE GLYCOL (HEALTHYLAX) 3350 17 GM PACKET PO SCH ×2 (09:26→21:56)
[2022-04-10] MEDS: FUROSEMIDE 40 MG TABLET (FP) PO SCH (09:26)
[2022-04-10] MEDS: ISOSORBIDE MONONITRATE 30 MG TAB.SR.24H (FP) PO SCH (09:26)
[2022-04-10] MEDS: ATORVASTATIN CA 20 MG TABLET (FP) PO SCH (21:55)
[2022-04-11 05:25] VITALS: RESP 18
[2022-04-11] MEDS: FUROSEMIDE 40 MG TABLET (FP) PO SCH (09:25)
[2022-04-11] MEDS: CARVEDILOL 12.5 MG TABLET (FP) PO SCH (09:25)
[2022-04-11] MEDS: PANTOPRAZOLE 40 MG TABLET PO SCH (09:25)
[2022-04-11] MEDS: POLYETHYLENE GLYCOL (HEALTHYLAX) 3350 17 GM PACKET PO SCH (09:25)
[2022-04-11] MEDS: ISOSORBIDE MONONITRATE 30 MG TAB.SR.24H (FP) PO SCH (09:25)
[2022-04-11 17:56] VITALS: BMI 28.0
[2022-04-11 21:45] VITALS: BP 125/64; PULSE 81; TEMP 98.4
== END 2022-04-11 21:52 | disposition home health service (06) | DRG 291 ==
LOC: JER 14:05 → JERBED 17:33 → J6S 19:03
PROVIDERS: ADMIT Internal Medicine; ATTEND Nurse Practitioner Acute Care
PROC: 30233N1 Transfusion of Nonautologous Red Blood Cells into Peripheral Vein, Percutaneous Approach (ICD-10-PCS; principal; 2022-04-03)
DX: I13.0 Hypertensive heart and chronic kidney disease with heart failure and stage 1 through stage 4 chronic kidney disease, or unspecified chronic kidney disease (principal); I50.23 Acute on chronic systolic (congestive) heart failure; J18.9 Pneumonia, unspecified organism; I31.39 Other pericardial effusion (noninflammatory); I42.8 Other cardiomyopathies; N18.9 Chronic kidney disease, unspecified; I25.10 Atherosclerotic heart disease of native coronary artery without angina pectoris; E78.5 Hyperlipidemia, unspecified; I35.1 Nonrheumatic aortic (valve) insufficiency; D63.1 Anemia in chronic kidney disease; I71.20 Thoracic aortic aneurysm, without rupture, unspecified; F03.90 Unspecified dementia, unspecified severity, without behavioral disturbance, psychotic disturbance, mood disturbance, and anxiety; E03.9 Hypothyroidism, unspecified
CPT/HCPCS: 0241U-QW; 36415; 36430; 71045-TC-FY; 80053; 82607; 82728; 82746; 83010; 83540; 83550; 83615; 83735; 83880; 84100; 85025; 85045; 85610; 85730; 86038; 86225; 86850; 86880; 86900; 86901; 86922; 94761; 97116-GP; 97161-GP; 99285-25; P9058

== ENCOUNTER 2022-04-22 15:45 | Emergency (ER) | payer OTHER ==
[2022-04-22 16:33] VITALS: BMI 27.3
[2022-04-22 17:22] LABS: HEMATOCRIT 22.5 % (32.4-45.2); HEMOGLOBIN 7.2 GM/dL (10.7-15.3); MCH 28.6 pg (25.7-33.7); MEAN CELL VOLUME 89.5 fl (80-96); MEAN PLT VOLUME 10.1 fl (7.5-11.1); PLATELET COUNT 335 10^3/uL (134-434); RBC 2.51 M/mm3 (3.60-5.2); RDW 17.9 % (11.6-15.6)
[2022-04-22 17:41] LABS: CHLORIDE 104 mmol/L (98-107); SODIUM 139 mmol/L (136-145)
[2022-04-22 17:43] LABS: CALCIUM 8.2 mg/dL (8.5-10.1)
[2022-04-22 17:44] LABS: ALBUMIN 1.6 g/dl (3.4-5.0); ANION GAP 9 MMOL/L (8-16); BLOOD UREA NITROGEN 38.9 mg/dL (7-18); CO2 25 mmol/L (21-32); GLUCOSE,RANDOM 97 mg/dL (74-106); MAGNESIUM 2.1 mg/dL (1.8-2.4)
[2022-04-22 17:47] LABS: CREATININE 2.2 mg/dL (0.55-1.3); PHOSPHOROUS 3.6 mg/dL (2.5-4.9); SGOT/AST 30 U/L (15-37); SGPT/ALT 27 U/L (13-61)
[2022-04-22 17:48] LABS: TOT PROT 6.8 g/dl (6.4-8.2)
[2022-04-22 17:50] LABS: ALK PHOS 73 U/L (45-117)
[2022-04-22 17:52] LABS: N-TERMINAL BNP 7523.3 pg/ml (5-450)
[2022-04-22] MEDS ORDERED: PIPERACILLIN/TAZOB 3.375 GM 3.375 GM in DEXTROSE 5%-WATER - 50 ML IVPB ONE (18:22)
[2022-04-22] MEDS ORDERED: ASPIRIN 81 MG CHEWABLE TABLETS PO ONE (18:36)
[2022-04-22] MEDS ORDERED: PIPERACILLIN/TAZOB 3.375 GM 3.375 GM/50 ML BAG IVPB ONE (18:45)
[2022-04-22] MEDS ORDERED: ASPIRIN 81 MG CHEWABLE TABLETS ONE (18:53)
[2022-04-22] MEDS ORDERED: FUROSEMIDE 40 MG/4 ML INJECTABLE VIAL IVPUSH ONE (19:24)
[2022-04-22] MEDS ORDERED: FUROSEMIDE 40 MG/4 ML INJECTABLE VIAL ONE (19:50)
[2022-04-22 20:44] VITALS: BP 150/74; PULSE 86; RESP 19; TEMP 98.1
== END 2022-04-23 00:29 | disposition short-term general hospital (02) ==
LOC: JER 15:45
PROC: 3E033GC Introduction of Other Therapeutic Substance into Peripheral Vein, Percutaneous Approach (ICD-10-PCS; principal; 2022-04-22)
DX: I71.00 Dissection of unspecified site of aorta (principal)
CPT/HCPCS: 0241U-QW; 36415; 71045-TC-FY; 71250-TC; 80053; 83735; 83880; 84100; 84484; 85025; 86850; 86900; 86901; 93005; 93010; 99285-25